=== PATIENT | female | born 1955 | race Caucasian/White ===

== ENCOUNTER → 2016-07-18 | Outpatient (CLI) | payer MEDICAID ==
--- NOTE | 2016-07-18 11:44 | ECHOS ---
DATE OF SERVICE: 07/18/2016 AGE: 61Y SEX: F HT: 64 WT: 165 lbs. Protocol Carlos A: X Others: Stress Echo Stage: IV Dur. of Exercise: 9:30 *Heart Rate Blood Pressure *Rest: 65 Rest: 121/82 * *Max. Achieved: 147 Maximum BP: 137/56 85% PMHR: 136 100% PMHR: 160 *METS: 10.9 INDICATIONS: Chest pain. MEDICATIONS: Lyrica, aspirin. Patient was exercised for a total period of 9 minutes and 30 seconds. Peak heart rate of 147 was achieved. Maximum blood pressure of 137/56 mmHg was noted. Resting EKG shows normal sinus rhythm with normal GA interval and QRS duration and normal ST-T waves. No ST segment depression suggestive of ischemia is noted. The patient did not complain of any chest pain during the test. The baseline echocardiographic images reveals a normal left ventricular chamber size with normal left ventricular systolic function. In the immediate postexercise period, normal increase in the wall thickness and contractility is noted. FINAL IMPRESSION: This stress echocardiographic study is negative for stress-induced ischemia. EKG portion of the stress is not suggestive of ischemia. Patient's exercise tolerance is normal.
--- NOTE | 2016-07-18 11:52 | ECHOF ---
Referral Reason:R07.2 percordial pain MEASUREMENTS -------- HEIGHT: 162.6 cm WEIGHT: 74.8 kg BP: 121/82 RVIDd: 2.8 cm (< 3.3) IVSd: 1.0 cm (0.6 - 1.1) LVIDd: 4.6 cm (3.9 - 5.3) LVPWd: 0.9 cm (0.6 - 1.1) IVSs: 1.6 cm LVIDs: 2.6 cm LVPWs: 1.3 cm LA Diam: 3.3 cm (2.7 - 3.8) LAESV Index (A-L): 12.64 ml/m Ao Diam: 2.9 cm (2.0 - 3.7) AV Cusp: 2.2 cm (1.5 - 2.6) MV E David: 0.87 m/s MV DecT: 252 ms MV A David: 0.73 m/s MV E/A Ratio: 1.19 FINDINGS -------- Sinus rhythm. This was a technically good study. The left ventricular size is normal. Left ventricular wall thickness is normal. Overall left ventricular systolic function is normal with, an EF between 60 - 65 %. The right ventricle is normal in size and function. Normal LA size by volume 22+/-6 ml/m2. The right atrium is normal in size. The aortic valve is trileaflet and appears structurally normal. Normal appearing mitral valve. The tricuspid valve appears structurally normal. Pulmonic valve appears structurally normal. The aortic root size is normal. Normal inferior vena cava with normal inspiratory collapse consistent with estimated right atrial pressure of 5 mmHg. There is no pericardial effusion. CONCLUSIONS -------- 1. Sinus rhythm. 2. Normal appearing mitral valve. 3. The tricuspid valve appears structurally normal. 4. Pulmonic valve appears structurally normal. 5. The aortic root size is normal. 6. Normal inferior vena cava with normal inspiratory collapse consistent with estimated right atrial pressure of 5 mmHg. 7. There is no pericardial effusion. 8. This was a technically good study. 9. The left ventricular size is normal. 10. Left ventricular wall thickness is normal. 11. Overall left ventricular systolic function is normal with, an EF between 60 - 65 %. 12. The right ventricle is normal in size and function. 13. Normal LA size by volume 22+/-6 ml/m2. 14. The right atrium is normal in size. 15. The aortic valve is trileaflet and appears structurally normal. LACTATION SPECIALIST: Shelly Reyna RDCS
== END | disposition home or self-care (01) ==
LOC: RADECHMAIN 08:17
PROVIDERS: ATTEND Internal Medicine Cardiovascular Disease
DX: R07.2 Precordial pain (principal)
CPT/HCPCS: 93017; 93306; 93350

== ENCOUNTER → 2016-09-16 | Outpatient (CLI) | payer MEDICAID ==
[2016-09-13 08:17] VITALS: BMI 28.3
[2016-09-16 14:19] VITALS: BP 120/77; PULSE 64; RESP 16; TEMP 97.5
--- NOTE | 2016-09-17 13:22 | P.PN ---
Subjective Principal diagnosis: This is follow-up visit for this patient with a history of severe and chronic left lower extremity pain and numbness and tingling sensation, patient had history of lumbar fusion surgery 2, she reported, that her pain is constant and occasionally associated with electric shock sensation in the left lower extremity, and she feels that occasionally she'll lose control of her left lower extremity, she is able to ambulate, she denies any fever or night sweats. She denies any change in the bowel movement or urination, she had left darian- laminectomy and microdiscectomy years ago, and she is currently on Lyrica 100 mg daily at bedtime, Patient denies any side effects of the medication, denies excessive drowsiness or sleepiness, denies suicidal ideation, and reports that the current pain medication is NOT helping control her pain Objective - Vital Signs Vital signs: Vital Signs Temp 97.5 F L 09/16/16 13:49 Pulse 64 09/16/16 13:49 Resp 16 09/16/16 13:49 BP 120/77 09/16/16 13:49 Pulse Ox 98 09/16/16 13:49 - Exam Physical Examinations : 1-Constitutiona : Cooperative , not in acute distress . 2-HEENT : nech ; supple , no Lymphadenopathy , normal thyroid size . eyes : no ptosis , no icterus, no photophobia . ENT : normal of hearing , normal oropharynx , no Thrush . 3- Respiratory : Chest clear to auscultations Bilaterally , no wheezing , no Rhonchi . 4- Cardiovascular : regular rate and rhythem , S1 , S2 , no S3 , no S4. 5- Gastrointestinal : abdomen soft no tenderness , bowel sounds positive all four quadrents , no organomegally . 6- Genitourinary : Defferred . 7- neurologic : Cranial nerve II to XII intact , no focal neurological deffecit . 8-psychatric : alert , oriented X 3 , appropriate affect , intact judgment and insight . 9-Lymphatic : no Lymphadenopathy . 10- musculoskeltal : , Lumber spine = normal moter stegnth lower extremities ,thigh and legs .5/5 deep tendon reflexes : normal Knee Jerk , normal ankle Jerk . Negative lumber facet Loading Test strait leg raising test negative bilaterally Fabere test negative bilaterally NO tenderness over the Sacroiliac joint on the Right , and Left side Assessment and Plan Plan: Assessment and plan= lumbar radiculopathy, patient had lumbar laminectomy and fusion surgery x2 She could benefit from caudal epidural steroid injections with lysis of epidural adhesions, which will be done under fluoroscopy guidance Procedure risk and benefits and alternatives discussed with the patient and she agreed with the preceding, she should continue her Lyrica 100 mg daily at bedtime, next visit we can increase the Lyrica does Time with Patient: Less than 30
== END | disposition home or self-care (01) ==
LOC: PNWHC3 12:46
PROVIDERS: ATTEND Specialist
DX: M54.16 Radiculopathy, lumbar region (principal); Z98.1 Arthrodesis status
CPT/HCPCS: 99211

== ENCOUNTER 2016-10-01 09:09 | Day surgery (SDC) | payer MEDICAID ==
[2016-10-01 09:44] VITALS: RESP 16; TEMP 93.8
[2016-10-01] MEDS ORDERED: LACTATED RINGERS 1,000 ML IV ONE (09:47)
[2016-10-01] MEDS ORDERED: LIDOCAINE 1% 20 ML VIAL (10MG/ML) FOR IV START INTRADERMA ONE (09:48)
[2016-10-01] MEDS ORDERED: DEXAMETHASONE SOD PHOS (MDV) 100 MG/10 ML VIAL ONE (10:00)
[2016-10-01] MEDS ORDERED: fentaNYL (PF) 50 MCG/ML 2 ML AMP ONE (10:00)
[2016-10-01] MEDS ORDERED: MIDAZOLAM 2 MG/2 ML VIAL ONE (10:00)
[2016-10-01] MEDS ORDERED: IOHEXOL 180 MG/ML 1 ML ML ONE (10:00)
[2016-10-01] MEDS ORDERED: IV FLUID CONTINUATION 1,000 ML IV ONE (10:27)
--- NOTE | 2016-10-01 10:31 | P.PCN ---
Date of Procedure: 10/01/16 Preoperative Diagnosis: Postoperative Diagnosis: Procedure(s) Performed: Implants: Surgeon: Kermit Foster Pathology: none sent Condition: stable Disposition: PACU Indications for Procedure: Operative Findings: Description of Procedure: PREOP DIAGNOSIS: Lumbar postlaminectomy syndrome POSTOP DIAGNOSIS: Lumbar postlaminectomy syndrome PROCEDURE: Caudal epidural steroid injection with epidurolysis and epidurogram under fluoroscopic guidance ANESTHESIA: Local with 1% lidocaine; conscious sedation EBL: Minimal. PROCEDURE INDICATION: The patient with post-laminectomy syndrome with low back pain and radiculopathy radiating down in both legs, here for a caudal epidural steroid injection with epidurolysis, #1 in series. Patient does not use any blood thinning medications. PROCEDURE DESCRIPTION: The patient was seen and identified in the preoperative area. Risks, benefits, complications, and alternatives were discussed with the patient including but not limited to bleeding, infection, nerve damage, incomplete pain relief, and allergic reactions to medications. The patient agreed to proceed with the procedure and signed the consent after all questions were answered. IV was started, and vital signs were stable. Patient was taken to the OR and time out was completed to verify proper patient , procedure, laterality of pain, and allergies. The patient was placed in the prone position on procedure table and a pillow was placed under the abdomen to reduce lumbar lordosis. The lumbosacral area was prepped and draped in the usual sterile fashion. Critical pause was taken. Vital signs were closely monitored during the procedure. Fluoroscopic camera was placed in the lateral view and the anterior-posterior plates of the sacrum were identified with infiltration of the area overlying the sacral hiatus with 1% lidocaine .A 16 gauge RK epidural needle was used to advance through the sacral hiatus into the caudal epidural space. Omnipaque 300 dye 2cc was injected and the position of the needle was verified to be in the midline. A Racz catheter was introduced into the epidural space and was advanced towards the L5-S1 interspace under direct fluoroscopic guidance. Multiple passes were made with the catheter for lysis of epidural adhesions. Decadron 20 mg with 3ml of preservative free Lidocaine 1% and 5 ml of preservative free normal saline (10 ml total) was injected slowly. Additional spread was seen to the bottom of L4 under fluoroscopy. The needle and the catheter were withdrawn intact. EPIDUROGRAM: Omnipaque 300 dye 2 ml was injected with spread of the dye into the caudal epidural space and with spread cutoff at L5 prior to epidurolysis. Post epidurolysis dye 2 ml was injected and spread was seen to L4. There was further spread of the solution together with the dye above the L5 level. COMPLICATIONS: None. DISPOSITION / PLANS: The patient was placed in a supine position and transferred to the recovery area in a stable condition for observation and was discharged from the recovery room after meeting discharge criteria. Home discharge instructions given to the patient by the staff. The patient was reexamined prior to discharge. The patient will schedule a repeat caudal KOREY with lysis of adhesions in 4-6 weeks.
--- NOTE | 2016-10-01 10:41 | FL ---
FLUOROSCOPY 8 seconds of fluoroscopy time were utilized during Pain Injection. 4 images document the procedure.
[2016-10-01 10:45] VITALS: BP 106/64; PULSE 61
== END 2016-10-01 10:57 | disposition home or self-care (01) ==
LOC: ORPAIN 09:09
PROVIDERS: ATTEND Anesthesiology
DX: M96.1 Postlaminectomy syndrome, not elsewhere classified (principal); M54.16 Radiculopathy, lumbar region
CPT/HCPCS: 62264; J2250; Q9965; J3010; J1100

== ENCOUNTER 2016-10-30 07:57 | Day surgery (SDC) | payer MEDICAID ==
[2016-10-14 11:08] VITALS: BMI 28.3
[2016-10-30 08:29] VITALS: RESP 16; TEMP 98.1
[2016-10-30] MEDS ORDERED: LACTATED RINGERS 1,000 ML IV ONE (08:54)
[2016-10-30] MEDS ORDERED: LIDOCAINE 1% 20 ML VIAL (10MG/ML) FOR IV START INTRADERMA ONE (08:54)
[2016-10-30] MEDS ORDERED: LACTATED RINGERS 1,000 ML IV SCH (09:30)
[2016-10-30] MEDS ORDERED: IV FLUID CONTINUATION 1,000 ML IV ONE (09:35)
--- NOTE | 2016-10-30 09:39 | FL ---
FLUOROSCOPY 5 seconds of fluoroscopy time were utilized during Pain Injection. 3 images document the procedure.
[2016-10-30 09:55] VITALS: PULSE 50
--- NOTE | 2016-10-30 10:06 | P.PCN ---
Date of Procedure: 10/30/16 Preoperative Diagnosis: Postoperative Diagnosis: Procedure(s) Performed: Implants: Surgeon: Kermit Foster Pathology: none sent Condition: stable Disposition: PACU Indications for Procedure: Operative Findings: Description of Procedure: PREOPERATIVE DIAGNOSIS: Lumbar post laminectomy syndrome. POSTOPERATIVE DIAGNOSIS: Lumbar post laminectomy syndrome. PROCEDURE: 1. Caudal epidural steroid injection under fluoroscopic guidance. 2. Caudal epidurogram. ANESTHESIA: Local with 1% lidocaine; IV sedation EBL: None. PROCEDURE INDICATION: This is a patient with postlaminectomy syndrome with uncontrolled pain who presents for caudal KOREY today. Several hours' relief from caudal KOREY + lysis #1; patient with severe pain after last procedure. Will proceed with caudal epidural steroid injection today. No use of blood thinners. PROCEDURE DESCRIPTION: The patient was seen and identified in the preoperative area. Risks, benefits, complications, and alternatives were discussed with the patient including but not limited to bleeding, infection, nerve damage, incomplete pain relief, and allergic reactions to medications. The patient agreed to proceed with the procedure and signed the consent. IV was started, and vital signs were stable. Patient was taken to the OR and time out was completed. The patient was placed in the prone position on procedure table and a pillow was placed under the abdomen to reduce lumbar lordosis. The lumbosacral area was prepped and draped in the usual sterile fashion. Vital signs were closely monitored during the procedure. Using lateral fluoroscopy the anterior-posterior plates of the sacrum were identified and the skin and deeper tissues corresponding into sacrococcygeal ligament were anesthetized using approximately 3 mL of 1% lidocaine. Then under fluoroscopy, a 3-1/2-inch 20-gauge Tuohy epidural needle/22-guage 3-1/2 inch spinal needle was guided through the sacrococcygeal ligament, and into the epidural space. After negative aspiration, a 1 mL of omnipaque-300 contrast dye was injected with excellent epidurogram. Again after negative aspiration for CSF , blood, and with no paresthesias, a solution containing Decadron 20mg, 2ml of 1 % preservative free lidocaine with 6 ml of preservative free normal saline ( total of 10 ml) solution was injected with washout of epidurogram. Needle was withdrawn intact. Skin was cleansed, and bandage was applied. COMPLICATIONS: None. COMMENTS: DISPOSITION / PLANS: The patient was placed in a supine position and transferred to the recovery area in a stable condition for observation and was discharged from the recovery room after meeting discharge criteria. Home discharge instructions given to the patient by the staff. The patient was reexamined prior to discharge. The patient will schedule a follow up in the clinic in 4-6 weeks to evaluate efficacy.
[2016-10-30 10:21] VITALS: BP 126/68
== END 2016-10-30 10:29 | disposition home or self-care (01) ==
LOC: ORPAIN 07:57
PROVIDERS: ATTEND Anesthesiology
DX: M96.1 Postlaminectomy syndrome, not elsewhere classified (principal); Z79.899 Other long term (current) drug therapy
CPT/HCPCS: 62323; J2250; J1100; Q9965; J3010; 62322; 99152

== ENCOUNTER → 2016-11-05 | Outpatient (CLI) | payer MEDICAID ==
--- NOTE | 2016-11-05 23:15 | MR ---
EXAMINATION TYPE: MR foot RT wo con DATE OF EXAM: 11/05/2016 COMPARISON: NONE HISTORY: Pain and swelling Standard multiplanar, multisequence MRI departmental protocol Multiplanar, multisequence images of the right foot were acquired. Diffusion weighted imaging was per formed. FINDINGS: The metatarsals are intact. I see no fracture. I see no focal bone destruction. There is mi ld spurring at the first MP joint. The tarsal bones appear intact. Plantar fascia appears normal. There is increased signal on the T2 images in the subcutaneous tissues of the forefoot and more at th e distal first second and third metatarsals. There is no evidence of a soft tissue mass. The medial and lateral flexor tendons of the foot appear intact. Achilles tendon is intact. IMPRESSION: There is subcutaneous edema in the forefoot there is nonspecific and could relate to cellulitis or un complicated soft tissue edema. No evidence of osteomyelitis. No fracture.
== END | disposition home or self-care (01) ==
LOC: RADMRIMAIN 16:31
PROVIDERS: ATTEND Orthopaedic Surgery
DX: R60.0 Localized edema (principal); M19.071 Primary osteoarthritis, right ankle and foot; M20.31 Hallux varus (acquired), right foot; G57.61 Lesion of plantar nerve, right lower limb

== ENCOUNTER → 2016-11-12 | Outpatient (CLI) | payer MEDICAID ==
[2016-11-12 13:25] LABS: CH 29.2; CHCM 32.5; HDW 2.41; HGB 13.1 gm/dL (11.4-16.0); MCH 29.7 pg (25.0-35.0); MCHC 32.8 g/dL (31.0-37.0); MCV 90.4 fL (80.0-100.0); Mean Platelet Volume 7.1; RBC 4.42 m/uL (3.80-5.40); RDW 14.2 % (11.5-15.5); WBC 9.8 k/uL (3.8-10.6)
[2016-11-12 13:52] LABS: C Reactive Protein 7.9 mg/L (<10.0)
[2016-11-12 13:53] LABS: Rheumatoid Factor, Qnt <9 IU/mL (<12)
[2016-11-12 17:52] LABS: Erythrocyte Sedimentation Rate 15 mm/hr (0-20)
[2016-11-12 19:11] LABS: ANA w/Reflex to Titer NEGATIVE (NEGATIVE)
[2016-11-13 12:42] LABS: HLA B27 NEGATIVE; HLA B27 Comment SEEBELOW
[2016-11-15 11:38] LABS: Lyme IgG/IgM 0.1 Index; Lyme IgG/IgM Interp NEGATIVE (NEGATIVE)
== END ==
LOC: LABWHC1 13:01
PROVIDERS: ATTEND Orthopaedic Surgery
DX: M19.071 Primary osteoarthritis, right ankle and foot (principal); M20.31 Hallux varus (acquired), right foot; G57.61 Lesion of plantar nerve, right lower limb; M06.9 Rheumatoid arthritis, unspecified
CPT/HCPCS: 36415; 84443; 85027; 85652; 86038; 86060; 86140; 86431; 86618; 86812

== ENCOUNTER → 2016-12-03 | Outpatient (CLI) | payer MEDICAID ==
--- NOTE | 2016-12-03 18:39 | CT ---
EXAMINATION TYPE: CT soft tissue neck w con DATE OF EXAM: 12/03/2016 5:42 PM COMPARISON: NONE HISTORY: Bilateral neck pain radiating to jaw. Family history of salivary gland cancer. CT DLP: 639.00 mGycm Automated exposure control for dose reduction was used. CONTRAST: CT scan of the neck is performed following with IV Contrast, patient injected with 100 mL of Omnipaqu e 300. Axial images are obtained, coronal and sagittal reformatted images are reviewed. FINDINGS: The parotid glands are symmetric. Submandibular salivary glands are symmetric. There is normal contra st opacification of carotid arteries and jugular veins. The thyroid gland is symmetric. There are a f ew anterior and posterior triangle cervical lymph nodes that measure less than 10 mm. I see no eviden ce of a pharyngeal mass. Epiglottis appears normal. Tonsils and adenoids appear normal. There is norm al aeration of the visualized paranasal sinuses. There are spondylotic changes in the cervical spine. There is no evidence of a tongue mass. Nasopharynx appears normal. IMPRESSION: Negative CT scan of the soft tissues of the neck. No evidence of salivary gland mass. Sp ondylotic changes noted in the cervical spine.
== END | disposition home or self-care (01) ==
LOC: RADCTMAIN 16:49
PROVIDERS: ATTEND Otolaryngology
DX: M47.812 Spondylosis without myelopathy or radiculopathy, cervical region (principal); H92.09 Otalgia, unspecified ear
CPT/HCPCS: 70491; Q9967

== ENCOUNTER → 2016-12-17 | Outpatient (CLI) | payer MEDICAID ==
--- NOTE | 2016-12-17 12:27 | P.PN ---
Progress Note - Text Patient returns for followup for chronic back pain with radiation to LLE. Patient recently underwent caudal KOREY x 2, which provided some relief for one day's interval apiece (one with lysis of adhesions, one without). Patient continues on Tylenol medication only for pain with some relief. Patient denies adverse drug effects from medications. Today, pt denies new-onset weakness, bowel/bladder incontinence, or any other signs or symptoms of cauda equina syndrome. There are no signs of acute intoxication, and no indications of medication diversion or overuse. In addition to above, 13-point review of systems is also negative for chest pain , shortness of breath, changes in vision, changes in hearing, new onset weakness , abdominal pain, diarrhea, extreme fatigue, malaise, fever, skin changes, homicidal or suicidal ideation, or bowel or bladder incontinence. Vital Signs: Reviewed in EMR Gen: WDWN, AAOx3, NAD HEENT: NCAT, EOMI, hearing grossly normal Pulm: resp unlabored Abd: soft, NT, ND Neck: supple, trachea midline ROM in flexion lumbar spine: reduced ROM in extension lumbar spine: reduced Lumbar paravertebral tenderness: + Facet loading: + bilateral SI joint tenderness: + L > R Rojas's test: + L > R Straight leg raise: + LLE Neuro: CN II-XII grossly intact, muscle strength lower extremities PRESERVED Imaging: Reviewed in EMR Assessment: 1. lumbar PLPS 2. lumbar spondylosis without myelopathy 3. lumbar radic Plan: 1. Explanation: Opioid and psychological risk scores were reviewed. Diagnoses , prognoses, and multiple treatment options including but not limited to physical therapy, interventional therapies, adjuvant medical therapies, narcotic medication therapies, and surgery were discussed with the patient and all questions were answered to the patient's satisfaction. 2. Opioid agreement: no opioids prescribed today 3. Counseling: The patient was counseled extensively on BODY MASS INDEX, EXERCISE. Specifically, the patient was instructed regarding the importance of smoking cessation, weight control, and exercise in the context of both chronic pain and overall health. 4. Procedures: bilateral lumbar MBB L3-S1 5. Consultations: None 6. Investigations: None 7. Medications: none prescribed 8. Disposition: f/u for procedure as scheduled PQRS measures: 1-Patient's medications are documented in the chart. 2-Tobacco use is negative 3-Patient has not had a pneumococcal vaccine. 4-Advanced care planning discussed, patient unable to give. 5-Opioid contract NOT signed with the patient. 6-Pain positive, follow-up visit or procedure scheduled 7-Patient's blood pressure measured and documented, and patient will follow up with the primary care due to hypertension. 8-Patient's weight was measured, and body mass index ABOVE the normal limits, and counseling was done. Patient instructed to follow up with PCP. 9-Patient WAS NOT identified as an unhealthy alcohol user.
== END | disposition home or self-care (01) ==
LOC: PNWHC3 11:22
PROVIDERS: ATTEND Anesthesiology
DX: M47.26 Other spondylosis with radiculopathy, lumbar region (principal); M96.1 Postlaminectomy syndrome, not elsewhere classified; Z79.899 Other long term (current) drug therapy
CPT/HCPCS: 99211

== ENCOUNTER 2017-01-08 08:48 | Day surgery (SDC) | payer MEDICAID ==
[2017-01-02 09:41] VITALS: BMI 29.2
[~2017-01-08 08:48] MED LIST: LACTATED RINGERS 1,000 ML IV SCH
[2017-01-08] MEDS ORDERED: LIDOCAINE 1% 20 ML VIAL (10MG/ML) FOR IV START INTRADERMA ONE (09:40)
[2017-01-08 09:46] VITALS: TEMP 97.7
[2017-01-08] MEDS ORDERED: IV FLUID CONTINUATION 1,000 ML IV ONE ×2 (10:15)
[2017-01-08 10:20] VITALS: RESP 16
[2017-01-08 10:44] VITALS: BP 117/57; PULSE 58
--- NOTE | 2017-01-08 10:48 | FL ---
Fluoroscopy HISTORY: Pain 11 seconds fluoroscopy time supplied to the referring clinician. 6 intraoperative C-arm images docum ent the procedure. See dictated report from anesthesia.
--- NOTE | 2017-01-08 10:48 | P.PCN ---
Date of Procedure: 01/08/17 Surgeon: Kermit Foster Pathology: none sent Condition: stable Disposition: PACU Description of Procedure: PREOPERATIVE DIAGNOSIS: L3-L4, L4-L5, and L5-S1 spondylosis without myelopathy and facet arthropathy. POSTOPERATIVE DIAGNOSIS: L3-L4, L4-L5, and L5-S1 spondylosis without myelopathy and facet arthropathy. PROCEDURE DESCRIPTION: Patient presents for L3-L4, L4-L5 and L5-S1 diagnostic medial branch blocks under fluoroscopic guidance. The procedure is performed using fluoroscopic guidance during needle placement to assure proper position and maximize safety. ANESTHESIA: Local with 1% lidocaine; conscious sedation with Versed only EBL: Minimal PROCEDURE INDICATION: Patient with lumbar facet arthropathy signs and symptoms, failed conservative therapy, here for diagnostic medial branch block #1 after minimal relief from caudal KOREY with SALENA and regular caudal KOREY. Pt does not take any blood thinning medications. PROCEDURE DESCRIPTION: The patient was seen and identified in the preoperative area. Risks, benefits, complications, and alternatives were discussed with the patient (including but not limited to incomplete pain relief, bleeding, infection, nerve damage, and allergies to medications), the patient agreed to proceed with the procedure and signed the consent after all questions were answered. Patient was taken to the OR and time out was completed to verify proper patient, position, laterality of pain, and allergies. Pt was placed in the prone position and a pillow was placed under the abdomen to reduce lumbar lordosis. The lumbosacral area was prepped and draped in the usual sterile fashion. Using oblique fluoroscopy, the eye of the "Evaristo dog" of right L4 vertebral body, which corresponds to the path of the medial branch originating from the level above, which is L3 in this case, was identified. Subsequently, a 22-gauge 3.5-inch spinal needle was inserted under fluoroscopic guidance toward the eye of the "Evaristo dog" of the right L4 vertebral body, corresponding to the junction of the superior articular process and the transverse process of the pedicle of the same level. After needle tip confirmation on lateral view and after negative aspiration for CSF and blood and without paresthesias, 1 mL of a 6 ml solution of 0.5% preservative-free bupivacaine and 40 mg Kenalog was injected. Subsequently the needle was withdrawn intact and the same procedure was repeated for the right L4, right L5, left L3, left L4, and left L5 medial branches which together with right L3 medial branch correspond to the sensory innervation of the bilateral L3-L4, L4-L5, and L5-S1 facet joints. Needle was withdrawn intact after each injection. At the end of the procedure, the skin was cleansed and bandages were applied. COMPLICATIONS: None. DISPOSITION/PLAN: The patient taken to the recovery area after the procedure in a stable condition for observation. Patient was reexamined prior to discharge and there were no issues. Patient was discharged home, accompanied by an adult, after meeting discharged criteria. Discharge instructions were give to the patient by the staff. Patient was specifically instructed not to drive today and to rest for the rest of the day. Patient will follow up for repeat MBB at next visit.
== END 2017-01-08 10:51 | disposition home or self-care (01) ==
LOC: ORPAIN 08:48
PROVIDERS: ATTEND Anesthesiology
DX: G89.29 Other chronic pain (principal); M46.96 Unspecified inflammatory spondylopathy, lumbar region; M47.816 Spondylosis without myelopathy or radiculopathy, lumbar region; M47.817 Spondylosis without myelopathy or radiculopathy, lumbosacral region
CPT/HCPCS: 64493; 64494; 64495; 99152; J2250; J3301

== ENCOUNTER → 2017-01-23 | Outpatient (CLI) | payer MEDICAID ==
[2017-01-23 08:57] LABS: Appearance,Urine Clear (Clear); Bilirubin,Urine Negative (Negative); Glucose,Urine (UA) Negative (Negative); Ketones,Urine Negative (Negative); Leukocyte Esterase,Urine Trace (Negative); Mucus,Urine Rare /hpf; Nitrite,Urine Negative (Negative); PH, Urine 5.5 (5.0-8.0); Particle Count 3256; Protein,Urine Negative (Negative); Specific Gravity,Urine 1.021 (1.001-1.035); Squamous Epithelial Cell,Urine <1 /hpf (0-4); UA Billing (MACRO vs. MICRO) MICRO; Urobilinogen,Urine <2.0 mg/dL (<2.0); WBC,Urine 1 /hpf (0-5)
[2017-01-23 09:03] LABS: Uric Acid 5.1 mg/dL (3.7-7.4)
[2017-01-23 17:21] LABS: Centromere Antibody Interp NEGATIVE (NEGATIVE); Cyclic Citrull Pep IgG Unit <0.5 U/mL; Cyclic Citrullinated Pep IgG NEGATIVE (NEGATIVE); RNP AB Interpretation NEGATIVE (NEGATIVE); Scleroderma SC-70 Ab Interp POSITIVE (NEGATIVE)
[2017-01-24 04:39] LABS: Aldolase 7.3 U/L (1.2-7.6)
[2017-01-24 05:22] LABS: Complement Total (CH50) 87 U/mL (42 - 95)
[2017-01-24 10:06] LABS: Free Kappa Lt Chain Qnt, Serum 1.44 mg/dL (0.33-1.94)
[2017-01-24 14:16] LABS: C-ANCA <1:20 Titer (<1:20); P-ANCA <1:20 Titer (<1:20)
[2017-01-27 09:27] LABS: Mis test requested (Blood) 14-3-3 eta Protein
== END | disposition home or self-care (01) ==
LOC: LABWHC1 08:10
PROVIDERS: ATTEND Internal Medicine Rheumatology
DX: M13.0 Polyarthritis, unspecified (principal)
CPT/HCPCS: 36415; 81001; 82085; 82164; 82306; 82550; 83520; 83883; 84165; 84550; 85613; 85730; 85732; 86038; 86147; 86160; 86162; 86200; 86225; 86235; 86255; 86334; 86803; 87340

== ENCOUNTER → 2017-04-16 | Outpatient (CLI) | payer MEDICAID ==
[2017-04-16 12:22] VITALS: BP 146/85; PULSE 85; RESP 16
--- NOTE | 2017-04-16 12:29 | P.PN ---
Subjective Progress Note Date: 04/16/17 This is follow-up visit for this patient with a history of severe and chronic low back pain secondary to lumbar degenerative disc disease, lumbar facet arthropathy, we did interventional pain management injection,,diagnostic medial branch block bilaterally , it was successful then in 03/06/2017 we have done radiofrequency ablation of the left-sided medial branch L3 to S1 , and her low back pain improved significantly , currently she is complaining of severe pain localized in the anterior lateral aspect of the left lower extremity below the knee , the intensity of the pain increased with any activity Patient denies any motor or sensory deficit, denies change in bowel movement or urination, patient denies any fever or night sweats Objective - Exam Physical Examinations : 1-Constitutiona : Cooperative , not in acute distress . 2-HEENT : nech ; supple , no Lymphadenopathy , normal thyroid size . eyes : no ptosis , no icterus, no photophobia . ENT : normal of hearing , normal oropharynx , no Thrush . 3- Respiratory : Chest clear to auscultations Bilaterally , no wheezing , no Rhonchi . 4- Cardiovascular : regular rate and rhythem , S1 , S2 , no S3 , no S4. 5- Gastrointestinal : abdomen soft no tenderness , bowel sounds positive all four quadrents , no organomegally . 6- Genitourinary : Defferred . 7- neurologic : Cranial nerve II to XII intact , no focal neurological deffecit . 8-psychatric : alert , oriented X 3 , appropriate affect , intact judgment and insight . 9-Lymphatic : no Lymphadenopathy . 10- musculoskeltal : , Lumber spine = normal moter stegnth lower extremities ,thigh and legs .5/5 deep tendon reflexes : normal Knee Jerk , normal ankle Jerk . lumber facet Loading Test negative bilateral strait leg raising test negative bilateral Fabere test negative bilaterally normal sensations both lower extremities Assessment and Plan Assessment: Assessment and plan= chronic low back pain secondary to lumbar degenerative disc disease , lumbar spondylosis with lumbar facet arthropathy , failed back surgery syndrome and lumbar area Interventional pain management= Refferal = Follow-up= , Plan: Assessment and plan= chronic low back pain secondary to lumbar radiculopathy , lumbar spondylosis with lumbar facet arthropathy , history of lumbar laminectomy surgery Interventional pain management= patient could benefit from caudal epidural steroid injection with lysis of epidural adhesions under fluoroscopy guidance procedure risks and benefits , and alternative discussed with the patient she agreed with proceeding , Time with Patient: Less than 30
== END | disposition home or self-care (01) ==
LOC: PNWHC3 11:46
PROVIDERS: ATTEND Specialist
DX: G89.29 Other chronic pain (principal); M54.5 Low back pain; M51.16 Intervertebral disc disorders with radiculopathy, lumbar region; M47.26 Other spondylosis with radiculopathy, lumbar region; M46.86 Other specified inflammatory spondylopathies, lumbar region; M96.1 Postlaminectomy syndrome, not elsewhere classified
CPT/HCPCS: 99211

== ENCOUNTER 2017-04-21 07:31 | Day surgery (SDC) | payer MEDICAID ==
[2017-04-18 08:42] VITALS: BMI 28.3
[2017-04-21 07:50] VITALS: TEMP 98
[2017-04-21] MEDS ORDERED: LIDOCAINE 1% 20 ML VIAL (10MG/ML) FOR IV START INTRADERMA ONE (08:01)
--- NOTE | 2017-04-21 09:13 | P.PCN ---
Date of Procedure: 04/21/17 Procedure(s) Performed: PREOP DIAGNOSIS: 1- Lumbar postlaminectomy syndrome. 2-lumbar spondylosis with facet arthropathy POSTOP DIAGNOSIS:1- Lumbar postlaminectomy syndrome. 2-lumbar spondylosis with facet arthropathy PROCEDURE: Caudal epidural steroid injection with epidurolysis and epidurogram under fluoroscopic guidance. ANESTHESIA: Local with 1% lidocaine 3 ml ; moderate IV sedation with Versed 3 mg and fentanyl 100 g EBL: Minimal. PROCEDURE INDICATION: The patient with post-laminectomy syndrome with low back pain and radiculopathy radiating down in both legs, here for a caudal epidural steroid injection with epidurolysis. PROCEDURE DESCRIPTION: The patient was seen and identified in the preoperative area. Risks, benefits, complications, and alternatives were discussed with the patient. The patient agreed to proceed with the procedure and signed the consent. IV was started, and vital signs were stable. Patient was taken to the OR and time out was completed. The patient was placed in the prone position on procedure table and a pillow was placed under the abdomen to reduce lumbar lordosis. The lumbosacral area was prepped and draped in the usual sterile fashion. Vital signs were closely monitored during the procedure. lateral view and the anterior-posterior plates of the sacrum were identified with infiltration of the area overlying the sacral hiatus with 1% lidocaine .A 17 gauge RK epidural needle was used to advance through the sacral hiatus into the caudal epidural space. Omnipaque 180 dye. 2cc was injected and the position of the needle was verified to be in the midline. A Racz catheter was introduced into the epidural space and was advanced towards the L5-S1 interspace under direct fluoroscopic guidance. Multiple passes were made with the catheter for lysis of epidural adhesions. Kenalog 80 mg with 3ml of preservative free Lidocaine 1% and 5 ml of preservative free normal saline was injected slowly. Additional spread was seen to L4 under fluoroscopy. The needle and the catheter were withdrawn intact. EPIDUROGRAM: Omnipaque 180 mg dye 2 ml was injected with spread of the dye into the caudal epidural space and with spread cutoff at L5 prior to epidurolysis. Post epidurolysis dye 2 ml was injected and spread was seen to L3- 4.There was further spread of the solution together with the dye above the L3 COMPLICATIONS: None. DISPOSITION / PLANS: The patient was placed in a supine position and transferred to the recovery area in a stable condition for observation and was discharged from the recovery room after meeting discharge criteria. Home discharge instructions given to the patient by the staff. The patient was reexamined prior to discharge. The patient will schedule a follow up in the clinic in 2-4 weeks.
[2017-04-21] MEDS ORDERED: IV FLUID CONTINUATION 1,000 ML IV ONE (09:17)
[2017-04-21 09:20] VITALS: RESP 16
--- NOTE | 2017-04-21 09:22 | FL ---
EXAMINATION TYPE: FL guided pain mgmt statistic DATE OF EXAM: 04/21/2017 HISTORY: Flouroscopy time 4 seconds of fluoroscopy provided. IMPRESSION: 1. Fluoroscopy time.
[2017-04-21 09:43] VITALS: BP 120/73; PULSE 59
== END 2017-04-21 09:57 | disposition home or self-care (01) ==
LOC: ORPAIN 07:31
PROVIDERS: ATTEND Specialist
DX: M96.1 Postlaminectomy syndrome, not elsewhere classified (principal); M47.816 Spondylosis without myelopathy or radiculopathy, lumbar region
CPT/HCPCS: 62264; J2250; J3301; Q9965; J3010; C1894; 99152

== ENCOUNTER 2017-05-14 07:26 | Day surgery (SDC) | payer MEDICAID ==
[2017-05-06 14:54] VITALS: BMI 28.3
[2017-05-14 07:45] VITALS: TEMP 97.9
[2017-05-14] MEDS: LACTATED RINGERS 1,000 ML IV SCH ×2 (07:48→08:32)
[2017-05-14] MEDS ORDERED: LIDOCAINE 1% 20 ML VIAL (10MG/ML) FOR IV START INTRADERMA ONE (07:49)
--- NOTE | 2017-05-14 09:07 | P.PCN ---
Date of Procedure: 05/14/17 Procedure(s) Performed: PREOP DIAGNOSIS: 1- Lumbar postlaminectomy syndrome POSTOP DIAGNOSIS:1- Lumbar postlaminectomy syndrome PROCEDURE: Caudal epidural steroid injection with epidurolysis and epidurogram under fluoroscopic guidance ANESTHESIA: Local with 1% lidocaine 3 ml ; IV sedation with Versed 3 mg and fentanyl 100 g EBL: Minimal. PROCEDURE INDICATION: The patient with post-laminectomy syndrome with low back pain and radiculopathy radiating down in both legs, here for a caudal epidural steroid injection with epidurolysis. PROCEDURE DESCRIPTION: The patient was seen and identified in the preoperative area. Risks, benefits, complications, and alternatives were discussed with the patient. The patient agreed to proceed with the procedure and signed the consent. IV was started, and vital signs were stable. Patient was taken to the OR and time out was completed. The patient was placed in the prone position on procedure table and a pillow was placed under the abdomen to reduce lumbar lordosis. The lumbosacral area was prepped and draped in the usual sterile fashion. Vital signs were closely monitored during the procedure. lateral view and the anterior-posterior plates of the sacrum were identified with infiltration of the area overlying the sacral hiatus with 1% lidocaine .A 17 gauge RK epidural needle was used to advance through the sacral hiatus into the caudal epidural space. Omnipaque 180 dye. 2cc was injected and the position of the needle was verified to be in the midline. A Racz catheter was introduced into the epidural space and was advanced towards the L5-S1 interspace under direct fluoroscopic guidance. Multiple passes were made with the catheter for lysis of epidural adhesions. Kenalog 80 mg with 3ml of preservative free Lidocaine 1% and 5 ml of preservative free normal saline was injected slowly. Additional spread was seen to L4 under fluoroscopy. The needle and the catheter were withdrawn intact. EPIDUROGRAM: Omnipaque 180 mg dye 2 ml was injected with spread of the dye into the caudal epidural space and with spread cutoff at L5 prior to epidurolysis. Post epidurolysis dye 2 ml was injected and spread was seen to L3- 4.There was further spread of the solution together with the dye above the L3 COMPLICATIONS: None. DISPOSITION / PLANS: The patient was placed in a supine position and transferred to the recovery area in a stable condition for observation and was discharged from the recovery room after meeting discharge criteria. Home discharge instructions given to the patient by the staff. The patient was reexamined prior to discharge. The patient will schedule a follow up in the clinic in 2-4 weeks.
[2017-05-14] MEDS ORDERED: IV FLUID CONTINUATION 1,000 ML IV ONE ×2 (09:11)
[2017-05-14 09:14] VITALS: RESP 16
--- NOTE | 2017-05-14 09:18 | FL ---
EXAMINATION TYPE: FL guided pain mgmt statistic DATE OF EXAM: 05/14/2017 HISTORY: Flouroscopy time 8 seconds of fluoroscopy provided. IMPRESSION: 1. Fluoroscopy time.
[2017-05-14 09:50] VITALS: BP 115/70; PULSE 63
== END 2017-05-14 09:55 | disposition home or self-care (01) ==
LOC: ORPAIN 07:26
PROVIDERS: ATTEND Specialist
DX: M96.1 Postlaminectomy syndrome, not elsewhere classified (principal)
CPT/HCPCS: 62264; J2250; J3301; Q9965; J3010; C1894; 99152

== ENCOUNTER → 2017-06-09 | Outpatient (CLI) | payer MEDICAID ==
[2017-06-09 11:55] VITALS: BP 133/71; PULSE 72; RESP 16
--- NOTE | 2017-06-09 12:25 | P.PN ---
Progress Note - Text Progress Note Date: 06/09/17 Patient returns for followup for chronic back pain with radiation to LLE. Patient recently underwent caudal KOREY x 2, which has provided good relief in the meantime. Patient continues on Tylenol medication only for pain with some relief. Patient denies adverse drug effects from medications. Today, pt denies new-onset weakness, bowel/bladder incontinence, or any other signs or symptoms of cauda equina syndrome. There are no signs of acute intoxication, and no indications of medication diversion or overuse. In addition to above, 13-point review of systems is also negative for chest pain , shortness of breath, changes in vision, changes in hearing, new onset weakness , abdominal pain, diarrhea, extreme fatigue, malaise, fever, skin changes, homicidal or suicidal ideation, or bowel or bladder incontinence. Vital Signs: Reviewed in EMR Gen: WDWN, AAOx3, NAD HEENT: NCAT, EOMI, hearing grossly normal Pulm: resp unlabored Abd: soft, NT, ND Neck: supple, trachea midline ROM in flexion lumbar spine: reduced ROM in extension lumbar spine: reduced Lumbar paravertebral tenderness: + Facet loading: + bilateral SI joint tenderness: + L > R Rojas's test: + L > R Straight leg raise: + LLE, neg RLE Neuro: CN II-XII grossly intact, muscle strength lower extremities PRESERVED Imaging: Reviewed in EMR Assessment: 1. lumbar PLPS 2. lumbar spondylosis without myelopathy 3. lumbar radic Plan: 1. Explanation: Opioid and psychological risk scores were reviewed. Diagnoses , prognoses, and multiple treatment options including but not limited to physical therapy, interventional therapies, adjuvant medical therapies, narcotic medication therapies, and surgery were discussed with the patient and all questions were answered to the patient's satisfaction. 2. Opioid agreement: no opioids prescribed today 3. Counseling: The patient was counseled extensively on BODY MASS INDEX, EXERCISE. Specifically, the patient was instructed regarding the importance of smoking cessation, weight control, and exercise in the context of both chronic pain and overall health. 4. Procedures: caudal KOREY with lysis in 3-4 weeks 5. Consultations: None 6. Investigations: None 7. Medications: none prescribed 8. Disposition: f/u for procedure as scheduled PQRS measures: 1-Patient's medications are documented in the chart. 2-Tobacco use is negative 3-Patient has not had a pneumococcal vaccine. 4-Advanced care planning discussed, patient unable to give. 5-Opioid contract NOT signed with the patient. 6-Pain positive, follow-up visit or procedure scheduled 7-Patient's blood pressure measured and documented, and patient will follow up with the primary care due to hypertension. 8-Patient's weight was measured, and body mass index ABOVE the normal limits, and counseling was done. Patient instructed to follow up with PCP. 9-Patient WAS NOT identified as an unhealthy alcohol user.
== END | disposition home or self-care (01) ==
LOC: PNWHC3 11:40
PROVIDERS: ATTEND Anesthesiology
DX: M47.26 Other spondylosis with radiculopathy, lumbar region (principal); G97.1 Other reaction to spinal and lumbar puncture; Z79.899 Other long term (current) drug therapy
CPT/HCPCS: 99211

== ENCOUNTER 2017-07-14 09:17 | Day surgery (SDC) | payer MEDICAID ==
[2017-07-07 11:13] VITALS: BMI 28.3
[2017-07-14] MEDS ORDERED: LIDOCAINE 1% 20 ML VIAL (10MG/ML) FOR IV START INTRADERMA ONE (10:12)
[2017-07-14 10:20] VITALS: TEMP 97.7
[2017-07-14] MEDS ORDERED: LACTATED RINGERS 1,000 ML IV ONE (10:25)
--- NOTE | 2017-07-14 11:23 | P.PCN ---
Date of Procedure: 07/14/17 Preoperative Diagnosis: Post Laminectomy Syndrome Postoperative Diagnosis: Post Laminectomy Syndrome Condition: stable Disposition: PACU Description of Procedure: PREOP DIAGNOSIS: 1- Lumbar postlaminectomy syndrome POSTOP DIAGNOSIS:1- Lumbar postlaminectomy syndrome PROCEDURE: Caudal epidural steroid injection with epidurolysis and epidurogram under fluoroscopic guidance ANESTHESIA: Local with 1% lidocaine 3 ml ; IV sedation with Versed 2 mg and fentanyl 100 g EBL: Minimal. PROCEDURE INDICATION: The patient with post-laminectomy syndrome with low back pain and radiculopathy radiating down in both legs, here for a caudal epidural steroid injection with epidurolysis. PROCEDURE DESCRIPTION: The patient was seen and identified in the preoperative area. Risks, benefits, complications, and alternatives were discussed with the patient. The patient agreed to proceed with the procedure and signed the consent. IV was started, and vital signs were stable. Patient was taken to the OR and time out was completed. The patient was placed in the prone position on procedure table and a pillow was placed under the abdomen to reduce lumbar lordosis. The lumbosacral area was prepped and draped in the usual sterile fashion. Vital signs were closely monitored during the procedure. lateral view and the anterior-posterior plates of the sacrum were identified with infiltration of the area overlying the sacral hiatus with 1% lidocaine .A 17 gauge RK epidural needle was used to advance through the sacral hiatus into the caudal epidural space. Omnipaque 180 dye. 2cc was injected and the position of the needle was verified to be in the midline. A Racz catheter was introduced into the epidural space and was advanced towards the L5-S1 interspace under direct fluoroscopic guidance. Multiple passes were made with the catheter for lysis of epidural adhesions. Kenalog 40 mg with 3ml of preservative free Lidocaine 1% and 5 ml of preservative free normal saline was injected slowly. Additional spread was seen to L4 under fluoroscopy. The needle and the catheter were withdrawn intact. EPIDUROGRAM: Omnipaque 180 mg dye 2 ml was injected with spread of the dye into the caudal epidural space and with spread cutoff at L5 prior to epidurolysis. Post epidurolysis dye 2 ml was injected and spread was seen to L3- 4.There was further spread of the solution together with the dye above the L3 COMPLICATIONS: None. DISPOSITION / PLANS: The patient was placed in a supine position and transferred to the recovery area in a stable condition for observation and was discharged from the recovery room after meeting discharge criteria. Home discharge instructions given to the patient by the staff. The patient was reexamined prior to discharge. The patient will schedule a follow up in the clinic in 2-4 weeks.
[2017-07-14] MEDS ORDERED: IV FLUID CONTINUATION 1,000 ML IV ONE (11:46)
[2017-07-14 11:50] VITALS: RESP 18
--- NOTE | 2017-07-14 12:04 | FL ---
EXAMINATION TYPE: FL guided pain mgmt statistic DATE OF EXAM: 07/14/2017 HISTORY: Flouroscopy time 65 seconds of fluoroscopy provided. IMPRESSION: 1. Fluoroscopy time.
[2017-07-14 12:18] VITALS: BP 115/76; PULSE 78
== END 2017-07-14 12:26 | disposition home or self-care (01) ==
LOC: ORPAIN 09:17
PROVIDERS: ATTEND Anesthesiology
DX: M96.1 Postlaminectomy syndrome, not elsewhere classified (principal); Z98.1 Arthrodesis status
CPT/HCPCS: 62264; J2250; J3301; J3010; Q9966; C1894; 99152

== ENCOUNTER → 2017-08-25 | Outpatient (CLI) | payer MEDICAID ==
[2017-08-25 12:05] VITALS: BP 158/81; PULSE 60; RESP 16; TEMP 97
--- NOTE | 2017-08-25 12:15 | P.PAINPG ---
Subjective Progress Note Date: 08/25/17 Principal diagnosis: Left lumbar radicular pain This is a very pleasant 62-year-old woman with a history of back pain and left leg numbness as well as pain. She is undergone caudal epidural steroid injections. She reports that she did receive some benefit from this and that with each of these injections she tends to see improvement. She now reports she has significant burning in the outside of her right calf. This is an worse since her last procedure. She is here requesting management of the symptoms. She is previously tried Lyrica as well as gabapentin and did not receive any significant benefit from these. She denies bowel or bladder dysfunction. She denies any other neurologic problems. The numbness in her foot has resolved. Objective - Vital Signs Vital signs: Vital Signs Temp 97 F L 08/25/17 12:01 Pulse 60 08/25/17 12:01 Resp 16 08/25/17 12:01 BP 158/81 08/25/17 12:01 Pulse Ox 100 08/25/17 12:01 Intake & Output 08/24/17 08/25/17 08/25/17 18:59 06:59 18:59 Weight 74.843 kg - Exam Gen: WDWN, AAOx3, NAD HEENT: NCAT, EOMI, hearing grossly normal Pulm: resp unlabored Straight leg raise is weakly positive on the left. There is good strength in lower extremities bilaterally. There are no sensory deficits in the lower extremities bilaterally. Reflexes are slightly depressed on the left side at the patella as compared to the right side. Assessment and Plan (1) Lumbar back pain with radiculopathy affecting left lower extremity Current Visit: Yes Status: Acute Code(s): M54.17 - RADICULOPATHY, LUMBOSACRAL REGION SNOMED Code(s): 657490158 Plan: * We will schedule the patient for a left lumbar transforaminal epidural steroid injection to be performed at the L4 5 level. PQRS Measure Charge Sheet Measure #130: Documentation of Current Meds in Medical Chart: Patient's medications documented in chart Measure #226: Tobacco Use: Screen & Cessation Intervention: Pt screened for tobacco use AND intervention given Measure #111: Pneumonia Vaccination: Pneumococcal vaccine NOT administered or previously given Measure #47: Advance Care Plan: Advance care planning discussed & documented, pt chose/unable to give Measure #412: Opioid Treatment Agreement: No documentation of signed opioid treatment agreement Measure #408: Opioid Therapy Follow-up Evaluation: Patient had NO f/u eval minimum every 3 months during opioid therapy Measure #317: Preventitive Care & Scrn High Bld Press & F/U: Pre-hypertensive or hypertensive BP documented, pt will f/u with PCP Measure #128: Body Mass Index (BMI) Screening & Follow-up: BMI documented ABOVE normal parameters - f/u documented Measure #131: Pain Assessment & Follow-up: Pain positive & plan documented Measure #431: Unhealthy Alcohol Use Preventative Care & Scrn: Patient not identified as an unhealthy alcohol user PQRS Narrative: Smoking Status Never smoker Do You Want the Pneumonia No Vaccine AT THIS TIME? Blood Pressure 158/81 Pain Intensity [Left Lower 3 Calf] Scale Used Numeric (1 - 10) Hx Alcohol Use (MH) No Home Medications: Ambulatory Orders Multivitamin [Multivitamins Adult Gummies] 1 each PO DAILY 01/02/17 Acetaminophen [Tylenol Arthritis] 650 mg PO HS PRN 07/07/17 Controlled Substance Measures - Controlled Substance Measures Is patient prescribed a controlled substance at discharge?: No If prescribed controlled substance>3 days was MAPS reviewed?: No When asked, does pt state using other controlled substances?: No Vital Signs - Temperature Temperature: 97 F - Respirations Respiratory Rate: 16 O2 Sat by Pulse Oximetry: 100
== END | disposition home or self-care (01) ==
LOC: PNWHC3 11:44
PROVIDERS: ATTEND Pain Medicine Pain Medicine
DX: M54.17 Radiculopathy, lumbosacral region (principal); Z79.899 Other long term (current) drug therapy
CPT/HCPCS: 99211

== ENCOUNTER 2017-09-17 08:42 | Day surgery (SDC) | payer MEDICAID ==
[2017-09-10 15:55] VITALS: BMI 28.3
[2017-09-17 09:41] VITALS: RESP 16; TEMP 97.5
[2017-09-17] MEDS ORDERED: LIDOCAINE 1% 20 ML VIAL (10MG/ML) FOR IV START INTRADERMA ONE (09:45)
[2017-09-17] MEDS ORDERED: IV FLUID CONTINUATION 1,000 ML IV ONE (11:20)
--- NOTE | 2017-09-17 11:38 | P.PCN ---
Date of Procedure: 09/17/17 Surgeon: Kermit Foster Pathology: none sent Condition: stable Disposition: PACU Description of Procedure: PREOPERATIVE DIAGNOSIS: Lumbar radiculopathy POSTOPERATIVE DIAGNOSIS: Lumbar radiculopathy PROCEDURE: 1. Transforaminal epidural steroid injection under fluoroscopic guidance at left L4-L5 level. 2. Lumbar epidurogram. ANESTHESIA: Local with 1% lidocaine; IV sedation with Versed and fentanyl EBL: Minimal PROCEDURE INDICATION: The patient with low back pain and radiculopathy symptoms secondary to PLPS unresponsive to conservative treatment. Patient has pain only on the left side, so will proceed with TFESI today. No use of blood thinners. PROCEDURE DESCRIPTION / TECHNIQUE: The patient was seen and identified in the preoperative area. Risks, benefits, complications, and alternatives were discussed with the patient (including but not limited to incomplete pain relief, bleeding, infection, nerve damage, and allergies to medications), the patient agreed to proceed with the procedure and signed the consent after all questions were answered. Patient was taken to the OR and time out was completed to verify proper patient, position, laterality of pain, and allergies. Pt was placed in the prone position and a pillow was placed under the abdomen to reduce lumbar lordosis. The lumbosacral area was prepped and draped in the usual sterile fashion. Vital signs were closely monitored during the procedure. Conscious sedation was used during the procedure to decrease patients anxiety. Using oblique fluoroscopy, the chin of the Evaristo dog at left L4-L5 level was identified, and the skin and deeper tissues just below was localized with 1 % lidocaine. Subsequently, a 22-gauge 3.5-inch spinal needle was advanced under a tunneled view fluoroscopic guidance just underneath the chin of the Evaristo dog at the left L4 level. Under lateral fluoroscopy, the needle was then advanced to the posterior border of the L4-L5 interforaminal space. After negative aspiration of CSF and blood and with no paresthesias, 1 mL of Isovue- 200 contrast dye was injected excellent epidurogram and outlining of the L4 nerve roots. Subsequently, 3 mL of total 6 ml block solution containing 10 mg of Decadron and 2 mL of PF lidocaine 1% was injected. At the end of the procedure, needles were removed intact, skin was cleansed, and bandages were applied. COMPLICATIONS: None COMMENTS: None. DISPOSITION / PLANS: The patient was placed in a supine position and transferred to the recovery area in a stable condition for observation. There was no evidence of lower extremity motor or sensory deficit after the procedure. Patient was discharged from the recovery room after meeting discharge criteria. Home discharge instructions were given to the patient by the staff. The patient was reexamined prior to discharge and there were no issues. The patient will schedule a follow up in clinic in 3-4 weeks to discuss efficacy.
[2017-09-17 12:01] VITALS: BP 141/63; PULSE 58
--- NOTE | 2017-09-17 12:04 | FL ---
EXAMINATION TYPE: FL guided pain mgmt statistic DATE OF EXAM: 09/17/2017 COMPARISON: NONE HISTORY: Left transforaminal injection. Lumbar spine pain. TECHNIQUE: Fluoroscopy. FINDINGS/IMPRESSION: Fluoroscopic guidance was provided during procedure performed by Dr. Foster. A total of 18 seconds of fluoroscopic time was utilized during the procedure and 4 spot images was acqu ired demonstrating localization of the lumbar spine.
== END 2017-09-17 12:05 | disposition home or self-care (01) ==
LOC: ORPAIN 08:42
PROVIDERS: ATTEND Anesthesiology
DX: M54.17 Radiculopathy, lumbosacral region (principal); M96.1 Postlaminectomy syndrome, not elsewhere classified
CPT/HCPCS: 64483; J2250; J1100; J3010; Q9966

== ENCOUNTER → 2017-10-15 | Outpatient (CLI) | payer MEDICAID ==
[2017-10-15 12:08] VITALS: BP 141/73; PULSE 55; RESP 16
--- NOTE | 2017-10-15 12:40 | P.PAINPG ---
Subjective Progress Note Date: 10/15/17 This is 62-year-old female with a chronic history of severe low back pain with radiation to the left lower extremity, mostly. Back surgery syndrome lumbar area and lumbar radiculopathy, previously with done: Epidural steroid injection with lysis of epidural adhesions , she had the partial short-term benefit from it, a few weeks ago we did the left-sided transforaminal epidural steroid injection at the L4 5 level, she reported that she had the best results after the transforaminal, pain improved significantly and currently she is complaining of left lower extremity pain and aching and burning sensation, she denies any fever or night sweats she denies any change in the bowel movement or urination, she tried multiple medications in the past she had either no benefit or side effects from it, she had side effects from Neurontin ,Lyrica ,[place], she has done physical therapy without any benefit. Objective - Vital Signs Vital signs: Vital Signs Temp Pulse 55 L 10/15/17 12:04 Resp 16 10/15/17 12:04 BP 141/73 10/15/17 12:04 Pulse Ox Intake & Output 10/14/17 10/15/17 10/15/17 18:59 06:59 18:59 Weight 74.843 kg - Exam Physical Examinations : 1-Constitutiona : Cooperative , not in acute distress . 2-- musculoskeltal : , Lumber spine = normal moter stegnth lower extremities ,thigh and legs .5/5 deep tendon reflexes : normal Knee Jerk , normal ankle Jerk . lumber facet Loading Test positive strait leg raising test positive at 60 degree Right , positve at 60 degree Left Fabere test positive Right and positive Left Assessment and Plan Assessment: Assessment and plan= 1-postlaminectomy pain syndrome 2-lumbar radiculopathy. Patient had partial short-term benefit from, and epidural steroid injections, she had more than 50% decrease in her pain after left-sided transforaminal epidural steroid injection at L4 5 levels, she will be good candidate to have a repeat left-sided transforaminal epidural steroid injection at L4-L5 level PQRS Measure Charge Sheet Measure #130: Documentation of Current Meds in Medical Chart: Patient's medications documented in chart Measure #226: Tobacco Use: Screen & Cessation Intervention: Pt not a tobacco user Measure #111: Pneumonia Vaccination: Pneumococcal vaccine NOT administered or previously given Measure #47: Advance Care Plan: Advance care planning discussed & documented, plan or surrogate given Measure #412: Opioid Treatment Agreement: No documentation of signed opioid treatment agreement Measure #408: Opioid Therapy Follow-up Evaluation: Patient had NO f/u eval minimum every 3 months during opioid therapy Measure #317: Preventitive Care & Scrn High Bld Press & F/U: Pre-hypertensive or hypertensive BP documented, pt will f/u with PCP Measure #128: Body Mass Index (BMI) Screening & Follow-up: BMI documented ABOVE normal parameters - f/u documented Measure #131: Pain Assessment & Follow-up: Pain positive & plan documented, Follow-up scheduled Measure #431: Unhealthy Alcohol Use Preventative Care & Scrn: Patient not identified as an unhealthy alcohol user PQRS Narrative: Smoking Status Never smoker Do You Want the Pneumonia No Vaccine AT THIS TIME? Blood Pressure 141/73 Pain Intensity [Left Lower 2 Lateral Leg] Scale Used Numeric (1 - 10) Hx Alcohol Use (MH) No Home Medications: Ambulatory Orders Multivitamin [Multivitamins Adult Gummies] 1 each PO DAILY 01/02/17 Acetaminophen [Tylenol Arthritis] 650 mg PO HS PRN 07/07/17 Controlled Substance Measures - Controlled Substance Measures Is patient prescribed a controlled substance at discharge?: No When asked, does pt state using other controlled substances?: No If prescribed controlled substance>3 days was MAPS reviewed?: No If Rx opioid, was Start Talking consent form obtained?: No If opioid is for acute pain is fill amount 7 days or less?: No Was information provided regarding opioid addiction?: No
== END | disposition home or self-care (01) ==
LOC: PNWHC3 11:45
PROVIDERS: ATTEND Specialist
DX: M96.1 Postlaminectomy syndrome, not elsewhere classified (principal); M54.16 Radiculopathy, lumbar region; Z79.899 Other long term (current) drug therapy
CPT/HCPCS: 99211

== ENCOUNTER 2017-11-10 06:55 | Day surgery (SDC) | payer MEDICAID ==
[2017-11-03 16:03] VITALS: BMI 28.3
[2017-11-10] MEDS ORDERED: LACTATED RINGERS 1,000 ML IV SCH (07:00)
[2017-11-10 07:43] VITALS: TEMP 98
[2017-11-10] MEDS ORDERED: LIDOCAINE 1% 20 ML VIAL (10MG/ML) FOR IV START INTRADERMA ONE (07:51)
--- NOTE | 2017-11-10 08:28 | P.PCN ---
Date of Procedure: 11/10/17 Procedure(s) Performed: PREOPERATIVE DIAGNOSIS: Lumbar radiculopathy in left L4-5 distribution POSTOPERATIVE DIAGNOSIS: Lumbar radiculopathy in left L4-5 distribution PROCEDURE 1. Transforaminal epidural steroid injection under fluoroscopic guidance at Left L4-5 level. 2. Lumbar epidurogram : ANESTHESIA: Local with 1% lidocaine 3 ml , moderate sedation with intravenous Versed 2 mg and fentanyle 100 micrograms EBL: Minimal PROCEDURE INDICATION: The patient with low back pain and radiculopathy symptoms unresponsive to conservative treatment. PROCEDURE DESCRIPTION / TECHNIQUE: The patient was seen and identified in the preoperative area. Risks, benefits , complications, and alternatives were discussed with the patient. The patient agreed to proceed with the procedure and signed the consent. IV was started, and vital signs were stable. Patient was taken to the OR and time out was completed. The patient was placed in the prone position on procedure table and a pillow was placed under the abdomen to reduce lumbar lordosis. The lumbosacral area was prepped and draped in the usual sterile fashion. Critical pause was taken. Vital signs were closely monitored during the procedure. Conscious sedation was used during the procedure to decrease patients anxiety. Using oblique fluoroscopy, the chin of the ``Evaristo dog at Left L4-5 level was identified, and the skin and deeper tissues just below was localized with 1 % lidocaine. Subsequently, a 22-gauge 3.5-inch spinal needle was advanced under a tunneled view fluoroscopic guidance just underneath the chin of the ``Evaristo dog at the left L4-5 . Under lateral fluoroscopy, the needle was then advanced to the posterior border of the left L4-5 interforaminal space. After negative aspiration of CSF and blood and with no paresthesias, 1 mL Isovue 200 contrast dye was injected excellent epidurogram and outlining of the nerve root Subsequently, 3 mL of block solution containing 40 mg Depomedrole and 2 mL of Lidocaine 1% was injected. Needle was removed and the same . At the end of the procedure, skin was cleansed, and bandages were applied. COMPLICATIONS:none DISPOSITION / PLANS: The patient was placed in a supine position and transferred to the recovery area in a stable condition for observation. There was no evidence of lower extremity motor or sensory deficit after the procedure. Patient was discharged from the recovery room after meeting discharge criteria. Home discharge instructions were given to the patient by the staff. The patient was reexamined prior to discharge.
[2017-11-10] MEDS ORDERED: IV FLUID CONTINUATION 1,000 ML IV ONE ×4 (08:35)
[2017-11-10 08:58] VITALS: BP 133/78; PULSE 78; RESP 18
--- NOTE | 2017-11-10 10:07 | FL ---
Fluoroscopy HISTORY: Pain 16 seconds fluoroscopy time supplied to the referring clinician. 2 intraoperative C-arm images docum ent the procedure. See dictated report from anesthesia.
== END 2017-11-10 09:18 | disposition home or self-care (01) ==
LOC: ORPAIN 06:55
PROVIDERS: ATTEND Specialist
DX: M54.16 Radiculopathy, lumbar region (principal); M96.1 Postlaminectomy syndrome, not elsewhere classified
CPT/HCPCS: 64483; J2250; J1030; J3010; Q9966

== ENCOUNTER → 2017-11-27 | Outpatient (CLI) | payer MEDICAID ==
[2017-11-27 11:58] VITALS: BP 137/79; PULSE 62; RESP 18
--- NOTE | 2017-11-27 12:22 | P.PAINPG ---
Subjective Progress Note Date: 11/27/17 This is 62 years old male with a chronic history of severe low back pain with radiation to the left lower extremity, diagnosed with failed back surgery syndrome lumbar area, and lumbar radiculopathy, we have done left side transforaminal epidural steroid injection at L4 5 levels , x2 , her pain improved significantly, currently her pain level in 1-2, she denies any motor or sensory deficit, he is able to function, she is using Tylenol when necessary Objective - Vital Signs Vital signs: Vital Signs Temp Pulse 62 11/27/17 11:53 Resp 18 11/27/17 11:53 BP 137/79 11/27/17 11:53 Pulse Ox 100 11/27/17 11:53 Intake & Output 11/26/17 11/27/17 11/27/17 18:59 06:59 18:59 Weight 74.843 kg - Exam Physical Examinations : 1-Constitutiona : Cooperative , not in acute distress . 2- musculoskeltal : Lumber spine moter stegnth lower extremities ,thigh and legs 5/5 Right side , 5/5 Left side Assessment and Plan Plan: Assessment and plan=1-failed back surgery syndrome and lumbar area. 2-lumbar radiculopathy. Pain improved after left-sided transforaminal epidural steroid injection at L4 5 , patient will follow up with the pain clinic when necessary Time with Patient: Less than 30 PQRS Measure Charge Sheet Measure #130: Documentation of Current Meds in Medical Chart: Patient's medications documented in chart Measure #226: Tobacco Use: Screen & Cessation Intervention: Pt not a tobacco user Measure #111: Pneumonia Vaccination: Pneumococcal vaccine NOT administered or previously given Measure #47: Advance Care Plan: Advance care planning discussed & documented, pt chose/unable to give Measure #412: Opioid Treatment Agreement: No documentation of signed opioid treatment agreement Measure #408: Opioid Therapy Follow-up Evaluation: Patient had NO f/u eval minimum every 3 months during opioid therapy Measure #317: Preventitive Care & Scrn High Bld Press & F/U: Normal blood pressure, f/u not required Measure #128: Body Mass Index (BMI) Screening & Follow-up: BMI documented ABOVE normal parameters - f/u documented Measure #131: Pain Assessment & Follow-up: Pain positive & plan documented, Pain negative & plan not documented, Follow-up PRN Measure #431: Unhealthy Alcohol Use Preventative Care & Scrn: Patient not identified as an unhealthy alcohol user PQRS Narrative: Smoking Status Never smoker Do You Want the Pneumonia No Vaccine AT THIS TIME? Blood Pressure 137/79 Pain Intensity [Left Ankle] 2 Scale Used Numeric (1 - 10) Hx Alcohol Use (MH) No Home Medications: Ambulatory Orders Multivitamin [Multivitamins Adult Gummies] 1 each PO HS 01/02/17 Acetaminophen [Tylenol Arthritis] 650 mg PO HS PRN 07/07/17 Biotin 10,000 mcg PO HS 11/03/17 Magnesium 200 mg PO HS 11/03/17 Controlled Substance Measures - Controlled Substance Measures Is patient prescribed a controlled substance at discharge?: No When asked, does pt state using other controlled substances?: No If prescribed controlled substance>3 days was MAPS reviewed?: No If Rx opioid, was Start Talking consent form obtained?: No If opioid is for acute pain is fill amount 7 days or less?: No Was information provided regarding opioid addiction?: No
== END | disposition home or self-care (01) ==
LOC: PNWHC3 11:45
PROVIDERS: ATTEND Specialist
DX: M96.1 Postlaminectomy syndrome, not elsewhere classified (principal); M54.12 Radiculopathy, cervical region; Z79.899 Other long term (current) drug therapy
CPT/HCPCS: 99211

== ENCOUNTER 2017-11-28 11:00 | Day surgery (SDC) | payer MEDICAID ==
[2017-11-14 11:06] VITALS: BMI 28.3
[~2017-11-28 11:00] MED LIST changes: +DEXAMETHASONE SOD PHOSPHATE 10 MG/ML 1 ML VIAL IV ONE; +LIDOCAINE 1% 20 ML VIAL (10MG/ML) FOR IV START INTRADERMA PRN; +MIDAZOLAM 2 MG/2 ML VIAL IV PRN; +ONDANSETRON 4 MG/2 ML VIAL IVP ONE; +Pre Op ABX Message 1 EACH MISC MISCELLANE ONE; +fentaNYL (PF) 50 MCG/ML 2 ML AMP IV PRN
[2017-11-28] MEDS ORDERED: KETAMINE 10 MG/ML 20 ML VIAL ONE (12:26)
[2017-11-28] MEDS ORDERED: LIDOCAINE 1% INJ 10MG/ML (20 ML MDV) ONE (12:26)
[2017-11-28] MEDS ORDERED: fentaNYL (PF) 50 MCG/ML 2 ML AMP ONE (12:26)
[2017-11-28] MEDS ORDERED: PROPOFOL 10 MG/ML 20 ML VIAL IV ONE (12:26)
[2017-11-28] MEDS ORDERED: MIDAZOLAM 2 MG/2 ML VIAL ONE (12:26)
[2017-11-28] MEDS ORDERED: LIDOCAINE 1% (PF) 10 MG/ML (30 ML SDV) SQ ONE (12:26)
[2017-11-28] MEDS ORDERED: HYDROmorphone 1 MG/ML 1 ML SYRINGE IVP PRN (12:29)
[2017-11-28] MEDS ORDERED: HYDROcodone/APAP 5-325MG 1 EACH TAB PO PRN ×2 (12:29)
[2017-11-28] MEDS ORDERED: HYDROmorphone 0.5 MG/0.5 ML SYRINGE IVP PRN (12:29)
[2017-11-28] MEDS ORDERED: LACTATED RINGERS 1,000 ML IV SCH (12:30)
[2017-11-28] MEDS ORDERED: ceFAZolin 1,000 MG/50 ML BAG (PMX) IVPB ONE (12:32)
[2017-11-28 13:26] VITALS: TEMP 97.2
[2017-11-28 13:33] VITALS: RESP 16
--- NOTE | 2017-11-28 13:41 | P.OP ---
Date of Procedure: 11/28/17 Preoperative Diagnosis: 1. 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 Clinically she had physical exam findings consistent with a second webspace neuroma. She had transient improvement following a second webspace corticosteroid injection. She continued to have pain that was refractory to nonsurgical treatment and requested surgery. My recommendation was to explore the webspace and resect the neuroma. She understands the potential risks and complications of surgery including but not limited to risks from anesthesia, risk of superficial infection, risk of deep infection, risk of delayed wound healing, risk of wound necrosis, risk of continued pain, risk of her recurrent neuroma, risk of angular deformity of the toes, risk of vascular injury to the toes, risk of resection of IX nerve related tissue, generalized to satisfaction with surgery, risk of worsened pain, risk of DVT, risk of PE, and risk of other medical complications. The patient voiced her understanding of these potential complications particularly continued or worsening pain and provided her consent to go forward with surgery. Description of Procedure: The patient was identified in the preoperative holding area and the correct right foot and second webspace with marked with my initials. I reviewed the consent form with the patient and her . All their questions were answered. The patient was then brought back to the operating room where she was positioned on the OR table and a MAC anesthetic was administered. A tourniquet was applied to the proximal aspect of the right leg. All bony prominences were well-padded. A timeout was performed identifying the correct patient, operative extremity, and procedure. The patient's leg was then elevated, exsanguinated with an Esmarch bandage, and the tourniquet was inflated to 250 mmHg. I began by outlining a longitudinal incision in the second webspace. Skin incision was made with a scalpel and dissection was carried down carefully through the subcutaneous tissue with tenotomy scissors. Crossing veins were controlled with electrocautery. A [place] elevator was placed under the transverse metatarsal ligament which was sharply released. I identified the lumbrical tendon and carefully retracted it. A Gelpi retractor was placed between the metatarsal heads to aid in distraction and visualization. A large bulbous mass was identified distally in the wound and tracked proximally to normal-appearing nerve. The nerve was transected sharply proximally and distally. The nerve and mass was sent to pathology. The wound was copiously irrigated. The tourniquet was let down with a total tourniquet time of 15 minutes. All bleeders were controlled with electrocautery. The wound was then closed in layers with 2-0 Vicryl the subcu and 3-0 nylon for the skin. All toes were with brisk capillary refill at the conclusion of the procedure. A sterile dressing consisting of Betadine soaked Adaptic, 4 x 4's, webrill and an Chandu wrap was applied. The patient was then awoken from her anesthetic, transferred to a gurney and brought to PACU in to the procedure well.
[2017-11-28] MEDS ORDERED: HYDROcodone/APAP 5-325MG 1 EACH TAB PO ONE (13:50)
[2017-11-28] MEDS ORDERED: HYDROmorphone 1 MG/ML 1 ML SYRINGE IVP ONE ×2 (14:08→14:13)
[2017-11-28 14:16] VITALS: BP 133/71; PULSE 59
== END 2017-11-28 14:54 | disposition home or self-care (01) ==
LOC: OR 11:00
PROVIDERS: ATTEND Orthopaedic Surgery
DX: G57.61 Lesion of plantar nerve, right lower limb (principal); M19.071 Primary osteoarthritis, right ankle and foot; M20.31 Hallux varus (acquired), right foot; Z82.49 Family history of ischemic heart disease and other diseases of the circulatory system; Z79.891 Long term (current) use of opiate analgesic
CPT/HCPCS: 88304; 28080; J2250; J1100; J2405; J2001 ×2; J3010; J1170; J0690; J2704

== ENCOUNTER → 2018-02-02 | Outpatient (CLI) | payer MEDICAID ==
--- NOTE | 2018-02-03 10:21 | MM ---
Reason for exam: screening (asymptomatic). Last mammogram was performed 1 year ago. History: Patient is postmenopausal. Family history of breast cancer in maternal aunt at age 50. Benign excisional biopsy of the right breast, February 03, 2006. Reductions of both breasts, 1999. Took hormonal contraceptives for 5 years beginning at age 23. Physical Findings: A clinical breast exam by your physician is recommended on an annual basis and results should be correlated with mammographic findings. MG 3D Screening Mammo W/Cad Bilateral CC and MLO view(s) were taken. Prior study comparison: January 31, 2017, bilateral MG 3d screening mammo w/cad. January 31, 2016, bilateral MG 3d screening mammo w/cad. The breast tissue is heterogeneously dense. This may lower the sensitivity of mammography. Benign appearing bilateral calcifications. No suspicious abnormality. Post surgical change bilaterally. No significant changes when compared with prior studies. ASSESSMENT: Benign, BI-RAD 2 RECOMMENDATION: Routine screening mammogram of both breasts in 1 year.
== END ==
LOC: RADMAMWWP 16:33
PROVIDERS: ATTEND Obstetrics & Gynecology
DX: Z12.31 Encounter for screening mammogram for malignant neoplasm of breast (principal); Z80.3 Family history of malignant neoplasm of breast
CPT/HCPCS: 77063; 77067

== ENCOUNTER → 2018-03-20 | Day surgery (SDC) | payer MEDICAID ==
[2018-03-16 10:11] VITALS: BMI 28.3
[~2018-03-20] MED LIST changes: +HYDROmorphone 1 MG/ML 1 ML SYRINGE IVP PRN; +LACTATED RINGERS 1,000 ML IV ONE; +LIDOCAINE 1% 20 ML VIAL (10MG/ML) FOR IV START INTRADERMA ONE; -LIDOCAINE 1% 20 ML VIAL (10MG/ML) FOR IV START INTRADERMA PRN; +LIDOCAINE 1% INJ 10MG/ML (20 ML MDV) ONE; +MIDAZOLAM (PF) 2 MG/2 ML VIAL IV PRN; -MIDAZOLAM 2 MG/2 ML VIAL IV PRN; +MIDAZOLAM 2 MG/2 ML VIAL ONE; +MORPHINE SULFATE 10 MG/ML SYRINGE ONE; +PROPOFOL 10 MG/ML 20 ML VIAL IV ONE; -Pre Op ABX Message 1 EACH MISC MISCELLANE ONE; +ROPIVACAINE 5 MG/ML 30 ML VIAL ONE; +SUCCINYLCHOLINE CHLORIDE 100 MG/5 ML SYR IV ONE; +ceFAZolin IN SWFI 2 GM/20 ML SYRINGE IVP ONE; +ePHEDrine SULFATE/0.9% NACL/PF 50 MG/5 ML SYRINGE IV ONE; +fentaNYL (PF) 50 MCG/ML 2 ML AMP ONE
[2018-03-20 13:47] VITALS: TEMP 96.9
--- NOTE | 2018-03-20 14:13 | FL ---
EXAMINATION TYPE: FL guidance operating room DATE OF EXAM: 03/20/2018 HISTORY: Flouroscopy time 4 seconds of fluoroscopy provided. IMPRESSION: 1. Fluoroscopy time.
--- NOTE | 2018-03-20 14:14 | XR ---
EXAMINATION TYPE: XR foot limited RT DATE OF EXAM: 03/20/2018 COMPARISON: NONE HISTORY: Intraoperative image TECHNIQUE: One view submitted FINDINGS: Postsurgical change involving the first digit noted IMPRESSION: Intraoperative image
[2018-03-20 14:33] VITALS: BP 129/71; PULSE 81; RESP 16
--- NOTE | 2018-03-20 15:05 | P.OP ---
Date of Procedure: 03/20/18 Preoperative Diagnosis: 1. Arthritic right hallux varus Postoperative Diagnosis: 1. Arthritic right hallux varus Procedure(s) Performed: 1. Right first MTP fusion Anesthesia: ONEYDA, regional Surgeon: Delvin [employer] Division Chair #1: Karl Acuna Estimated Blood Loss (ml): 10 IV fluids (ml): 1,000 Pathology: none sent Condition: stable Disposition: PACU Indications for Procedure: The patient is a very pleasant previously healthy 62-year-old female who is well -known to my practice. She previously underwent a Cabello's neuroma excision in her right foot and a with this. Prior to her neuroma excision she had a mild hallux varus deformity and degenerative changes of the joint. Following surgery she had almost complete relief of her pain but developed worsening of her hallux varus deformity. She also developed mild varus angulation of the second toe at the MTP joint. Her repeated x-rays showed a degenerative hallux varus deformity. We discussed nonsurgical treatment versus operations to correct her deformity. She requested surgery. We discussed joint sparing procedures and effusion. Due to the patient's age and degenerative changes I recommended a first MTP fusion which in my opinion would have the most durable outcome with low-dose risk of recurrence. The patient agreed and consent for surgery. We discussed potential risks and competitions of surgery including but not limited to risk of anesthesia, superficial infection, deep infection, delayed wound healing, wound necrosis, damage to local blood vessels or nerves, risk of nonunion of the fusion site, risk of malunion fusion site, risks and metacarpal where, risk of continued pain, risk of overcorrection of the deformity, risk of under correction of the deformity, risk of swelling, risk of generalized satisfaction surgery, risk of inability to regain preinjury level of function, risk of DVT, risk of PE, risk of other medical complications, and possibly loss of life or limb. The patient provided her verbal and written consent to go forward with surgery. We also discussed potentially correcting any deformity of the second toe with an MTP capsulotomy, extensor tenotomy, and flexor to extensor tendon transfers. Description of Procedure: The patient was identified in preop holding and the correct right leg was marked my initials. I reviewed the consent form with the patient and all of her questions were answered. The patient was given a popliteal and saphenous nerve block by anesthesia. She was brought back to the operating room position of the or table where general anesthetic and preoperative antibiotics were administered. The tourniquet was applied proximal aspect of the right leg. All bony prominences were well-padded. The right leg was then prepped and draped in standard sterile fashion. Prior to surgery timeout was performed identifying the correct patient, operative extremity, and procedure. The patient's leg was then elevated, exsanguinated with an Esmarch bandage, and the tourniquet was inflated to 250 mmHg. I began by outlining a longitudinal incision directly over the first MTP joint. Skin incision with a scalpel and dissection was carried down carefully to the subcutaneous tissue with tenotomy scissors. The EHL tendon sheath was identified and incised under tingling in line with the skin incision. The EHL tendon was then retracted laterally. The capsule was incised under drilling in line with the skin incision. On inspection of the joint there were large dorsal osteophytes off the distal first metatarsal and proximal family's. There were several loose bodies within the joint. There was almost full- thickness loss of cartilage from the dorsal half of the first metatarsal head. The cartilage the base the proximal phalanx was relatively intact. He K wires placed on the central axis of the first metatarsal and a concave reamer was used to remove the articular cartilage. K wire was withdrawn and used to perforate the subchondral bone of the first metatarsal head to facilitate fusion. The K wire was then placed down the central aspect proximal phalanx. A convex reamer was sized and then used to remove the articular cartilage. The K wire was withdrawn and used to perforate the subchondral bone to facilitate fusion. The wound was copiously irrigated. The joint was then positioned for fusion in slight valgus and dorsiflexion. An eccentric replaced K wire was then placed across the joint holding the joint for fusion. Clinically the toe appeared straight. Fluoroscopy was used to verify correction of the varus deformity. A flat plate was used to assess position of the toe which appeared adequate. A nonlocking 2.7 mm lag screw was placed from the base of the proximal phalanx across the joint and into the metatarsal head. A precontoured first MTP fusion place was then placed over the dorsal aspect of the joint. A 2.7 mm nonlocking screws placed distally in the proximal phalanx. A 2.7 mm nonlocking screw was placed proximally in the first metatarsal and the most optimal portion of the oblong hole to generate additional compression across the joint. The remaining holes of the plate were filled with 2.7 mm locking screws. Clinically the toe appeared straight. Final fluoroscopic images were taken. Attention was then turned to the second toe. On inspection of the foot the toe appeared straight with no residual deformity. X-rays also showed minimal deformity. At that point I decided to not perform any additional procedures on the second toe as it appeared straight. The wound was copiously irrigated. The capsule the first MTP joint was closed with a running 2-0 PDS. The deep subcu was reapproximated using interrupted 3-0 Monocryl. Skin was closed with a running 3-0 Monocryl subcuticular stitch. I verified that all instrument, sponge, and sharp counts were correct. A sterile dressing was applied followed by well-padded bulky Tai splint with the ankle in neutral. The patient was then awoken from her anesthetic, transferred to a relizabeth, and brought to PACU procedure well. Karl Acuna PAC was required as a skilled sound assistant for patient positioning, surgical exposure, preparation of the joint, placement of hardware, closure of wound, application of splint.
--- NOTE | 2018-03-21 15:25 | P.ONQ ---
Anesthesiology Proc Note - PNB - Peripheral Nerve Block Performed Right Popliteal Single Time Out Performed: Yes (right saphenous nerve block) Procedure Start Time: 10:25 Procedure Stop Time: :30 Indication: Acute Post-Operative Pain, Requested by physician Sedation Type: Sedate with meaningful contact maintained Preparation: Sterile Prep Needle Size: 50mm (2") Needle Gauge: 21 Technique: Ultrasound Injectate: 0.5% Ropivacaine (see comment for volume) (Ropivacaine 0.5% 20 mL for popliteal block and an 10 mL for saphenous) Blood Aspirated: No Pain Paresthesia on Injection Noted: No Resistance on Injection: Normal Events: Uneventful and Well Tolerated
== END | disposition home or self-care (01) ==
LOC: OR 09:20
PROVIDERS: ATTEND Orthopaedic Surgery
DX: M20.11 Hallux valgus (acquired), right foot (principal); M19.071 Primary osteoarthritis, right ankle and foot
CPT/HCPCS: 64450; 73620; 28750; C1713; J2250 ×2; J1100; J2270; J2405; J2001; J3010; J2795; J0330; J2704; J0690

== ENCOUNTER → 2018-04-09 | Outpatient (CLI) | payer MEDICAID ==
[2018-04-09 11:10] LABS: HCT 40.3 % (34.0-46.0); HGB 12.6 gm/dL (11.4-16.0); MCH 26.4 pg (25.0-35.0); MCHC 31.4 g/dL (31.0-37.0); MCV 84.2 fL (80.0-100.0); Mean Platelet Volume 6.7; Platelet Count 321 k/uL (150-450); RBC 4.78 m/uL (3.80-5.40); RDW 15.4 % (11.5-15.5); WBC 7.8 k/uL (3.8-10.6)
[2018-04-09 17:12] LABS: Albumin 4.6 g/dL (3.80-4.90); Albumin/Globulin Ratio 2.3 (1.20-2.10); Anion Gap 7.8 mmol/L (4.00-12.00); Calcium 9.3 mg/dL (8.7-10.3); Carbon Dioxide 24.2 mmol/L (21.6-31.8); LDL Cholesterol,Calculated 165.8 mg/dL (0.0-131.0); Potassium 4.4 mmol/L (3.5-5.5); Total Bilirubin 0.6 mg/dL (0.3-1.2); Total Protein 6.6 g/dL (6.2-8.2); VLDL Calculation 27.2 mg/dL (5.00-40.00)
== END ==
LOC: LABWHC1 10:26
PROVIDERS: ATTEND Obstetrics & Gynecology
DX: Z13.220 Encounter for screening for lipoid disorders (principal); Z13.1 Encounter for screening for diabetes mellitus; Z13.29 Encounter for screening for other suspected endocrine disorder
CPT/HCPCS: 36415; 80053; 80061; 84439; 84443; 84479; 85027

== ENCOUNTER 2018-04-15 06:56 | Day surgery (SDC) | payer MEDICAID ==
[2018-04-10 15:05] VITALS: BMI 28.3
[~2018-04-15 06:56] MED LIST changes: -DEXAMETHASONE SOD PHOSPHATE 10 MG/ML 1 ML VIAL IV ONE; -HYDROmorphone 1 MG/ML 1 ML SYRINGE IVP PRN; -LACTATED RINGERS 1,000 ML IV ONE; -LIDOCAINE 1% 20 ML VIAL (10MG/ML) FOR IV START INTRADERMA ONE; +LIDOCAINE 1% 20 ML VIAL (10MG/ML) FOR IV START INTRADERMA PRN; -LIDOCAINE 1% INJ 10MG/ML (20 ML MDV) ONE; -MIDAZOLAM (PF) 2 MG/2 ML VIAL IV PRN; -MIDAZOLAM 2 MG/2 ML VIAL ONE; -MORPHINE SULFATE 10 MG/ML SYRINGE ONE; -ONDANSETRON 4 MG/2 ML VIAL IVP ONE; -PROPOFOL 10 MG/ML 20 ML VIAL IV ONE; -ROPIVACAINE 5 MG/ML 30 ML VIAL ONE; -SUCCINYLCHOLINE CHLORIDE 100 MG/5 ML SYR IV ONE; -ceFAZolin IN SWFI 2 GM/20 ML SYRINGE IVP ONE; -ePHEDrine SULFATE/0.9% NACL/PF 50 MG/5 ML SYRINGE IV ONE; -fentaNYL (PF) 50 MCG/ML 2 ML AMP IV PRN; -fentaNYL (PF) 50 MCG/ML 2 ML AMP ONE
[2018-04-15 07:19] VITALS: RESP 16; TEMP 98.2
[2018-04-15] MEDS ORDERED: LIDOCAINE 1% 20 ML VIAL (10MG/ML) FOR IV START INTRADERMA ONE (07:28)
[2018-04-15] MEDS ORDERED: PROPOFOL 10 MG/ML 20 ML VIAL IV ONE (07:39)
--- NOTE | 2018-04-15 07:42 | P.GSHP ---
History of Present Illness H&P Date: 04/15/18 Chief Complaint: Colon cancer screening Patient today for colonoscopy. Last colonoscopy 5 years ago. History of adenomas. No bowel related complaints. No rectal bleeding. Past Medical History Past Medical History: Musculoskeletal Disorder Additional Past Medical History / Comment(s): past hx. of h pylori, past hx. 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 History of Any Multi-Drug Resistant Organisms: None Reported Past Surgical History: Bladder Surgery, Breast Surgery, Cholecystectomy, Tubal Ligation Additional Past Surgical History / Comment(s): Hx lumbar laminectomy bilateral L4-L5 with discectomy 2014, & redo 2016; breast reduction. bladder suspension, pain clinic procedures, removal Cabello's neuroma, metatarsal phalangeal fusion right big toe 2017 Past Anesthesia/Blood Transfusion Reactions: No Reported Reaction Smoking Status: Never smoker - Past Family History Sister(s) Family Medical History: Cancer Additional Family Medical History / Comment(s): Salivary Gland CA/ Father Family Medical History: Coronary Artery Disease (CAD), CVA/TIA Mother Family Medical History: Dementia, Pulmonary Embolus Medications and Allergies Home Medications Medication Instructions Recorded Confirmed Type HYDROcodone/APAP 10-325MG [[place] 1 tab PO Q4HR PRN 7 Days #40 tab 03/20/1804/15 Rx 10-325] Allergies Allergy/AdvReac Type Severity Reaction Status Date / Time suture AdvReac Itching Verified 04/15/18 07:07 Surgical - Exam Vital Signs Temp Pulse Resp BP Pulse Ox 98.2 F 73 16 136/70 95 04/15/18 07:17 04/15/18 07:17 04/15/18 07:17 04/15/18 07:17 04/15/18 07:17 Physical exam: General: Well-developed, well-nourished HEENT: Normocephalic, sclerae nonicteric Abdomen: Nontender, nondistended Extremities: No edema Neuro: Alert and oriented Assessment and Plan (1) Colon cancer screening Narrative/Plan: Will proceed with colonoscopy at time Current Visit: Yes Status: Acute Code(s): Z12.11 - ENCOUNTER FOR SCREENING FOR MALIGNANT NEOPLASM OF COLON SNOMED Code(s): 058653961
--- NOTE | 2018-04-15 07:55 | P.PCN ---
Date of Procedure: 04/15/18 Procedure(s) Performed: PREOPERATIVE DIAGNOSIS: Colon cancer screening, history of polyps POSTOPERATIVE DIAGNOSIS: Mild diverticulosis, melanosis coli PROCEDURE: Colonoscopy [place] [facility] [place] Clint Eller M.D. SPECIMENS: None ENDOSCOPIC PROCEDURE: The patient was placed on the endoscopy table in the left decubitus position. The Olympus colonoscope was inserted into the anus and passed under direct visualization to the base of the cecum. The appendiceal orifice was visualized. From that point the scope was slowly withdrawn inspecting all surfaces carefully. There were no neoplastic inflammatory or polypoid lesions throughout the cecum, ascending, transverse, descending, sigmoid and rectum. There was minimal left-sided diverticulosis noted. 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 Digital rectal examination was normal. The patient was taken to the recovery room in stable condition per anesthesia guidelines. RECOMMENDATIONS: Increase fiber. Follow-up colonoscopy 5 years
[2018-04-15 08:14] VITALS: BP 118/77; PULSE 61
== END 2018-04-15 08:30 | disposition home or self-care (01) ==
LOC: ORWHC2ENDO 06:56
PROVIDERS: ATTEND Surgery
DX: Z12.11 Encounter for screening for malignant neoplasm of colon (principal); K57.30 Diverticulosis of large intestine without perforation or abscess without bleeding; Z86.010 Personal history of colon polyps; K63.89 Other specified diseases of intestine; Z82.49 Family history of ischemic heart disease and other diseases of the circulatory system; Z90.49 Acquired absence of other specified parts of digestive tract; Z88.9 Allergy status to unspecified drugs, medicaments and biological substances
CPT/HCPCS: J2704; G0105; 45378

== ENCOUNTER → 2018-04-29 | Outpatient (CLI) | payer MEDICAID ==
--- NOTE | 2018-04-29 11:32 | BD ---
EXAMINATION TYPE: Axial Bone Density DATE OF EXAM: 04/29/2018 COMPARISON: 04/05/2016 CLINICAL HISTORY: Height: 63 IN Weight: 174 LBS RISK FACTORS HISTORY OF: Surgery to Spine: 2 SURGERIES TO L-SPINE When: 2014 AND 2015 Active: YES Postmenopausal woman: AGE 51 MEDICATIONS: Additional Medications: VITAMINS EXAM MEASUREMENTS: Bone mineral densitometry was performed using the [employer] System. L-SPINE NOT DONE. PT HAD L-SPINE SURGERY IN 2014 AND 2015 Bone mineral density about the R hip (g/cm2): 0.949 Bone mineral density about the L hip (g/cm2): 0.904 T Score values are as follows: -----R Neck: -0.6 -----L Neck: -1.0 -----R Total: 0.1 -----L Total: 0.3 Bone mineral density has: Decreased -1.2% since study of: 04/05/2016 Bone mineral density about the L Wrist (g/cm2): 0.723 T Score values are as follows: -----Dist. R+U: 0.0 -----Prox. R+U: 0.8 -----Radius total: 0.8 Bone mineral density BASELINE IMPRESSION: No evidence for osteoporosis or osteopenia. NOTE: T-SCORE=SD OF THE YOUNG ADULT MEAN.
== END | disposition home or self-care (01) ==
LOC: RADBDWWP 07:43
PROVIDERS: ATTEND Obstetrics & Gynecology
DX: Z13.820 Encounter for screening for osteoporosis (principal)
CPT/HCPCS: 77080

== ENCOUNTER 2018-07-29 09:34 | Day surgery (SDC) | payer MEDICAID ==
[2018-07-21 09:59] VITALS: BMI 28.3
[~2018-07-29 09:34] MED LIST changes: +DEXAMETHASONE SOD PHOSPHATE 10 MG/ML 1 ML VIAL IV ONE; +HYDROmorphone 0.5 MG/0.5 ML SYRINGE IVP PRN; +SCOPOLAMINE 1.5MG/72HR PATCH TRANSDERM ONE; +ceFAZolin IN SWFI 2 GM/20 ML SYRINGE IVP ONE
[2018-07-29] MEDS: ONDANSETRON 4 MG/2 ML VIAL IVP ONE ×2 (10:45→13:22)
[2018-07-29] MEDS ORDERED: fentaNYL (PF) 50 MCG/ML 2 ML AMP IVP ONE (10:47)
[2018-07-29] MEDS ORDERED: MIDAZOLAM (PF) 2 MG/2 ML VIAL IVP ONE (10:47)
[2018-07-29] MEDS ORDERED: fentaNYL (PF) 50 MCG/ML 2 ML AMP ONE (11:10)
[2018-07-29] MEDS ORDERED: ROPIVACAINE 5 MG/ML 30 ML VIAL ONE (11:10)
[2018-07-29] MEDS ORDERED: LIDOCAINE 0.5% (PF) 5 MG/ML (50 ML SDV) ONE (11:10)
[2018-07-29] MEDS ORDERED: LIDOCAINE 1% INJ 10MG/ML (20 ML MDV) ONE (11:10)
[2018-07-29] MEDS ORDERED: KETAMINE 10 MG/ML 20 ML VIAL ONE (11:10)
[2018-07-29] MEDS ORDERED: PROPOFOL 10 MG/ML 20 ML VIAL IV ONE (11:10)
--- NOTE | 2018-07-29 11:14 | P.ONQ ---
Anesthesiology Proc Note - PNB - Peripheral Nerve Block Performed Right Saphenous/Obturator Single Time Out Performed: Yes Procedure Start Time: 10:46 Indication: Acute Post-Operative Pain Specifically requested for management of pain by DrThanh: Delvin Sharif Sedation Type: Sedate with meaningful contact maintained Preparation: Sterile Prep Position: Supine Catheter: None Needle Types: Other (see comment) (pajunk) Needle Size: 100mm (4") Needle Gauge: 21 Technique: Ultrasound Injectate: Other (see comment) (0.25% ropivacaine/0.5% lidocaine 20 mL) Adjunct: Epinephrine (see comment for dilution ratio) (1:200,000) Blood Aspirated: No Pain Paresthesia on Injection Noted: No Resistance on Injection: Normal Events: Uneventful and Well Tolerated
--- NOTE | 2018-07-29 11:16 | P.ONQ ---
Anesthesiology Proc Note - PNB - Peripheral Nerve Block Performed Right Popliteal Single Time Out Performed: Yes Procedure Start Time: 10:46 Indication: Acute Post-Operative Pain Specifically requested for management of pain by DrThanh: Delvin Sharif Sedation Type: Sedate with meaningful contact maintained Preparation: Sterile Prep Position: Supine Catheter: None Needle Types: Other (see comment) (PAJUNK) Needle Size: 50mm (2") Needle Gauge: 21 Technique: Ultrasound Injectate: Other (see comment) (0.25% ropivacaine/0.5% lidocaine 20 mL) Adjunct: Epinephrine (see comment for dilution ratio) (1:200,000) Blood Aspirated: No Pain Paresthesia on Injection Noted: No Resistance on Injection: Normal Events: Uneventful and Well Tolerated
[2018-07-29 12:47] VITALS: TEMP 97
[2018-07-29 12:49] VITALS: RESP 16
--- NOTE | 2018-07-29 12:56 | P.OP ---
Date of Procedure: 07/29/18 Preoperative Diagnosis: 1. Angular deformity right second toe at the MTP joint 2. Angular deformity right third toe at the MTP joint 3. Metatarsalgia, right foot 4. History of prior second webspace neuroma excision and first MTP fusion for idiopathic hallux varus 5. Chronic pain currently taking [place] and cannabis oil Postoperative Diagnosis: Same Procedure(s) Performed: 1. Correction of angular deformity right second toe with MTP capsulotomy, Z- lengthening long extensor tendon, and EDB tendon transfer 2. Correction of angular deformity right third toe with MTP capsulotomy and long extensor tenotomy Anesthesia: JEANIE, regional Surgeon: Delvin Sharif Personal Injury Paralegal #1: Karl Acuna Estimated Blood Loss (ml): 5 IV fluids (ml): 500 Pathology: other (Second MTP synovium sent to pathology) Condition: stable Disposition: PACU Indications for Procedure: The patient is a very pleasant 63-year-old female who is well known to our office. The patient has had a long-standing history of problems with her extremities and back. She has been seeing me for several years in regards to her right foot. She was initially managed for metatarsalgia and a second webspace neuroma. She had injections which provided minimal relief. She had an MRI which showed diffuse edema and swelling throughout the foot. She also was referred to rheumatology who did an extensive workup and multiple injections, none of which provided relief and the workup did not reveal any inflammatory etiology. She also is a patient in the pain center and has had multiple injections into her back with minimal relief. In addition she is also had lumbar spine surgery with minimal relief. Ultimately she underwent a second webspace neuroma excision and was found to have a large neuroma. She had some improvement postoperatively and her pain that developed worsening angular deformities mostly of the first MTP joint. Her x-rays prior to the neuroma excision showed hallux varus. We initially attempted to treat her nonsurgically but ultimately she requested surgical correction of her first MTP deformity. Due to her age and degenerative changes on x-ray my recommendation was to perform a first MTP fusion. She also had some deformity of the second toe at that time. She did well from her first MTP fusion but had continued discomfort in the second toe. We have been trying to manage her nonoperatively but ultimately she had worsened pain which she actually due to the deformity of her second and third toes. Clinically her incisions had healed with no sign of infection. The fusion was nicely consolidating on x-ray. She got to the point that she stated that she had increasing pain and would like to go surgical correction of her second and third toe. I do lengthy discussion with her on treatment options. 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 My recommendation was to perform soft tissue releases and tendon transfers to straighten the second and third toe. We also discussed the possibility of requiring a shortening osteotomy. The patient was realistic in her expectations. She understands that at baseline she is on [place] and cannabis oil and she may still have pain in her foot. She also understands the potential for recurrent or worsening deformity. After our lengthy discussion in the office the patient provided her consent to go forward with surgery. Description of Procedure: Significant crepitus holding and the correct right foot was marked with my initials. I reviewed the consent form with the patient and all of her questions were answered. Due to her significant pain after prior surgeries she requested a nerve block which was given by anesthesia. The patient was then brought back to the operating room by anesthesia. A general anesthetic and preoperative antibiotics were administered on the gurney and then she was transferred to the OR table. A tourniquet was applied to the proximal aspect of the right leg. All bony prominences were well-padded. The right leg was then prepped and draped in the standard sterile fashion. Prior to starting surgery timeout was performed identifying the correct patient, operative extremity, and procedure. The patient's leg was then elevated, exsanguinated with an Esmarch bandage, and the tourniquet was inflated to 250 mmHg. I began by outlining the prior scar in the second webspace. Incision was made w ith a scalpel and dissection was carried down carefully through the subcutaneous tissue with tenotomy scissors taking care to not undermine the skin edges. The long extensor tendon over the second toe was identified and a Z-lengthening was performed. The capsule was identified and was released medially and dorsally. At this point I was able to easily reduce the second MTP joint so a shortening osteotomy was not deemed necessary. On inspection the synovium appeared inflamed and hypertrophic. A small amount of the capsule was sharply excised and sent to pathology. At this point I was able to easily straighten the toe. A double-ended 0.0625 K wire was driven through the base of the proximal phalanx out the tip of the toe and then the MTP joint was reduced with the toe in a straight position relative to the first and third toe and the K wire was driven across the MTP joint. The long extensor tendon was then repaired in a lengthened position with 3-0 FiberWire. The EDB tendon was transferred underneath the remnants of the intermetatarsal ligament and repaired with 3-0 FiberWire. Dissection was then carried through the same incision to the third MTP joint. The capsule of the MTP joint was released dorsally. The long extensor tendon was identified and sharply released. I was able to reduce the third toe at the MTP joint and a 0.0625 K wire was driven through the tip of the third toe, across the phalanges and into the metatarsal. Final fluoroscopic images were taken. Clinically the toes appeared straight. The wound was thoroughly irrigated and closed in layers. A sterile dressing was applied. The patient was awoken from her anesthetic, transferred to a gurney, and brought to PACU without the procedure well. Karl Acuna PA-C was required as a skilled portfolio assistant for patient positioning, surgical exposure, retraction, closure of wound, and application of dressing. Plan: The patient is going to discharge home as an outpatient. She can heel weight-bear in a tall boot. Her was instructed on twice daily pin site care with a Q-tip tipped and peroxide. She will follow-up in 2 weeks for soft tissue inspection. Plan - Discharge Summary Discharge Rx Participant: Yes New Discharge Prescriptions: No Action Multivitamins, Thera [Multivitamin (formulary)] 1 tab PO DAILY Magnesium 200 mg PO DAILY Biotin 5 mg PO DAILY Discharge Medication List Biotin 5 mg PO DAILY 07/21/18 [History] Magnesium 200 mg PO DAILY 07/21/18 [History] Multivitamins, Thera [Multivitamin (formulary)] 1 tab PO DAILY 07/21/18 [History] Follow up Appointment(s)/Referral(s): Delvin Sharif MD [Medical Doctor] - 2 Weeks Activity/Diet/Wound Care/Special Instructions: - Heel weight-bearing on your operative foot while wearing the CAM boot. - You may change your operative dressing two days after surgery. After you re move your surgical dressing, you may get your incision wet in the shower. Pat incision dry with a clean towel. Cover incisions with a clean bandage. Do not soak your incisions. - Clean pin sites twice a day with hydrogen peroxide. - Take pain medications as prescribed. Take aspirin as blood clot prevention. Take colace as a stool softener. - Ice and elevate the operative leg for pain and swelling control. - Follow-up in the office with Dr. Sharif in two weeks. Call the office with any questions or concerns, Discharge Disposition: HOME SELF-CARE
--- NOTE | 2018-07-29 12:59 | XR ---
Limited right foot HISTORY: Metatarsal pinning 2 intraoperative C-arm images document the procedure
--- NOTE | 2018-07-29 13:00 | FL ---
Fluoroscopy HISTORY: pins in metatarsals 1 minute 25 seconds fluoroscopy time supplied to the referring clinician. 2 intraoperative C-arm eduin ges document the procedure. See dictated report from orthopedic surgery.
[2018-07-29] MEDS ORDERED: PROMETHAZINE INJ 25 MG/ML 1 ML VIAL IVPB ONE (13:29)
[2018-07-29 14:42] VITALS: BP 111/69; PULSE 65
== END 2018-07-29 16:18 | disposition home or self-care (01) ==
LOC: OR 09:34
PROVIDERS: ATTEND Orthopaedic Surgery
DX: M20.31 Hallux varus (acquired), right foot (principal); M19.071 Primary osteoarthritis, right ankle and foot; M20.61 Acquired deformities of toe(s), unspecified, right foot; M77.41 Metatarsalgia, right foot; G89.29 Other chronic pain; Z86.69 Personal history of other diseases of the nervous system and sense organs; Z79.891 Long term (current) use of opiate analgesic; Z79.899 Other long term (current) drug therapy
CPT/HCPCS: 28313; 28270; 64445; 88305; 73620; C1713; J1100; J2550; J2405; J2001 ×2; J3010; J2795; J2704; J0690; J2250; 64450

== ENCOUNTER → 2018-11-11 | Outpatient (CLI) | payer MEDICAID ==
--- NOTE | 2018-11-11 18:15 | CT ---
EXAMINATION TYPE: CT foot RT wo con DATE OF EXAM: 11/11/2018 COMPARISON: 07/29/2018 fluoroscopy images HISTORY: Other orthopedic aftercare. Complete arthrodesis CT DLP: 291 mGycm Automated exposure control for dose reduction was used. TECHNIQUE: Axial images 3 mm thick sections. Reconstructed images in the coronal and sagittal planes. Three-D reconstructed images performed separately on a separate computer by the technologist are rev iewed. FINDINGS: Postsurgical changes are through the first metatarsal. The ankle mortise appears intact. No significa nt joint effusion is evident. Os navicularis is present, normal variant. Soft tissues appear unremark able. Attention is paid to the first metatarsophalangeal joint space. Please appears to be healing through this region. There is some limitation due to beam hardening isabel fact from fixation hardware. IMPRESSION: THERE APPEARS TO BE FUSION OF THE FIRST METATARSOPHALANGEAL JOINT SPACE WHICH CONTAINS FIXATION HARDW ARE FOR ARTHRODESIS.
== END | disposition home or self-care (01) ==
LOC: RADCTMAIN 11:11
PROVIDERS: ATTEND Orthopaedic Surgery
DX: Z47.89 Encounter for other orthopedic aftercare (principal); M19.071 Primary osteoarthritis, right ankle and foot; M20.31 Hallux varus (acquired), right foot; Z98.1 Arthrodesis status; Z98.890 Other specified postprocedural states

== ENCOUNTER → 2018-11-13 | Outpatient (CLI) | payer MEDICAID | END | disposition home or self-care (01) | LOC: LABWHC1 11:10 | PROVIDERS: ATTEND Orthopaedic Surgery | DX: E55.9 Vitamin D deficiency, unspecified (principal) | CPT/HCPCS: 36415; 82306 ==

== ENCOUNTER 2019-01-14 11:09 | Day surgery (SDC) | payer MEDICAID ==
[2019-01-11 16:14] VITALS: BMI 29.0
[2019-01-14] MEDS ORDERED: LIDOCAINE 1% 20 ML VIAL (10MG/ML) FOR IV START INTRADERMA ONE (11:29)
[2019-01-14] MEDS: LACTATED RINGERS 1,000 ML IV SCH ×2 (11:30→23:47)
[2019-01-14] MEDS ORDERED: DEXAMETHASONE SOD PHOSPHATE 10 MG/ML 1 ML VIAL IV ONE (12:21)
[2019-01-14] MEDS: ONDANSETRON 4 MG/2 ML VIAL IVP ONE ×2 (12:21→17:40)
[2019-01-14] MEDS ORDERED: HYDROmorphone (PF) 1 MG/ML ONE (14:37)
[2019-01-14] MEDS ORDERED: PROPOFOL 10 MG/ML 20 ML VIAL IV ONE (14:37)
[2019-01-14] MEDS ORDERED: MIDAZOLAM 2 MG/2 ML VIAL ONE (14:37)
[2019-01-14] MEDS ORDERED: fentaNYL (PF) 50 MCG/ML 2 ML AMP ONE (14:37)
[2019-01-14] MEDS ORDERED: LIDOCAINE 1% INJ 10MG/ML (20 ML MDV) ONE (14:37)
[2019-01-14] MEDS ORDERED: LACTATED RINGERS 1,000 ML IV ONE (16:45)
--- NOTE | 2019-01-14 16:52 | P.OP ---
Date of Procedure: 01/14/19 Preoperative Diagnosis: 1. Possible nonunion right first MTP joint 2. Symptomatic hardware, right first MTP joint Postoperative Diagnosis: 1. Aseptic, fibrous nonunion first MTP joint 2. Symptomatic hardware, right first MTP joint Procedure(s) Performed: 1. Revision fusion right first MTP joint 2. Hardware removal, deep right foot 3. 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 She's had several surgeries by myself. The first was neuroma excision which she initially did well with. She then developed progressively worsening deformity of the first MTP joint and second toe. Her pre-operative x-rays showed mild hallux varus and her postoperative x-rays showed increasing deformity. We discussed nonsurgical and surgical treatment but she wanted surgery. Due to her age I recommended a fusion. She is also had several surgeries on her second toe for coronal def ormities. She initially did well following her first MTP fusion but then developed progressively worsening pain which she attributed to the hardware. Her x-rays showed a likely nonunion. A computed tomography scan was obtained and the radiologist read it as a healed fusion but my interpretation was either a partial fusion or nonunion. I had a long discussion with the patient and her family on treatment options including observation, continued nonsurgical treatment, and revision surgery. We discussed removing the hardware and visualizing the joint. If the fusion had taken we discussed just removing the hardware. If the fusion hadn't healed we discussed either a revision fusion or Cartiva. After long discussion and careful consideration the patient decided she wanted to go forward with surgery. We discussed potential risks and complications of surgery including but not limited to risk of anesthesia, superficial infection, deep infection, delayed wound healing, superficial wound necrosis, deep wound necrosis, damage to local blood vessels or nerves, nonunion of the fusion site, malunion of the fusion site, some to Romie hardware, DVT, PE, need for further surgery, generalized to satisfaction with surgery, and possibly loss of life or limb. The patient voiced understanding of this and provided her verbal and written consent to go forward with surgery. Operative Findings: There was one broken screw the first metatarsal and a fibrous nonunion of the first MTP joint. There is no evidence of deep infection. Description of Procedure: The patient was identified in preoperative holding and the correct right leg was marked with my initials. I reviewed the consent form with the patient and her daughter who works as a nurse. All their questions were answered. Nerve block was given by anesthesia. The patient was then brought back to the operating room to choose position of the or table where general anesthetic and preoperative and a packs were given. A tourniquet was applied proximal aspect of the right leg. A bump was placed in the right buttock and the rotating the leg to neutral. The left leg was secured to the table with foam and tape. A ramp was placed in the right leg to facilitate imaging. The right leg was then prepped and draped in the standard sterile fashion. Prior to surgery and surgery timeout was performed identifying the correct patient, operative extremity, and procedure. The patient's leg was then elevated, exsanguinated with an Esmarch bandage, the tourniquet was inflated to 250 mmHg. I began by outlining her healed scar over the dorsal aspect of the first MTP joint. Skin incision is made with a scalpel and dissection was carried down carefully to the subcu tissues tissue with tenotomy scissors. The EHL tendon sheath was incised and the tendon was retracted laterally. The capsule of the first MTP joint was sharply incised in line with the skin incision. The plate and screws were identified and carefully removed. There is heterotopic bone that had grown over the plate proximally. The lag screw was then removed with stab incision on the medial aspect of the proximal phalanx. At this point the joint was examined. There appeared to be micromotion at the joint and fibrous tissue at the fusion site. I carefully debrided the fibrous tissue and then was able to pass a 15 blade scalpel into the joint. It was gently levered open. Fibrous tissue was curetted out and the joint was thoroughly irrigated until all fibrous tissue was removed and there was only healthy-appearing bone. A 0.054 K wire was used to perforate the subchondral bone to help facilitate fusion. Augment was injected into the fusion site. The joint was then positioned for fusion in 15 of valgus and 10 of dorsiflexion. An eccentric we placed 0.0625 K wire was placed across the joint holding the joint reduced. A flat plate was used verify position of the fusion. The tip of the toe rested flat on the plate and I was able to passively dorsiflex the tip of the toe. Fluoroscopy was used to verify position of the joint. A precontoured [place] MTP fusion plate with a 10 dorsal bend was applied over the joint and held in place with L tipped K wires. A nonlocking 2.7 mm screw was placed distally into the proximal pharynx holding the plate down to bone. A second nonlocking 2.7 mm screw was placed followed by a locking 2.7 mm screw. Attention was then turned to the proximal aspect of the plate. A nonlocking 3.5 mm screw was placed in the most proximal aspect of the oblong hole to generate compression. The screw was brought fully down generated excellent compression. An additional nonlocking 3.5 mm screw and locking 3.5 mm screw were placed. The eccentric replaced K wire was removed. The wound was gently irrigated and final fluoroscopic images were taken. The remaining augment was injected around the fusion site and the capsule was closed with a running 2-0 Vicryl. The deep subcu was reapproximated using 3-0 Monocryl. The skin was closed with 3-0 nylon horizontal mattress stitches. I verified that all instrument, sponge, and sharp counts were correct. The patient was awoken from her anesthetic, transferred to a gurney, and brought to PACU without the procedure well. Plan: The patient is going to discharge home as an outpatient. She is to remain nonweightbearing on her right leg in a bulky Tai splint. She was given pain medication and a stool softener. She was given aspirin for DVT prophylaxis.
[2019-01-14] MEDS: HYDROmorphone 0.5 MG/0.5 ML SYRINGE IVP PRN ×2 (17:40→17:47)
[2019-01-14] MEDS ORDERED: HYDROmorphone 1 MG/ML 1 ML SYRINGE IVP PRN (17:54)
[2019-01-14] MEDS ORDERED: SODIUM CHLORIDE 0.9% 1,000 ML IV SCH (18:00)
[2019-01-14] MEDS ORDERED: METOCLOPRAMIDE 5 MG/ML 2 ML VIAL IVP ONE (18:07)
--- NOTE | 2019-01-14 19:02 | P.ANPRN ---
Procedure Note - Anesthesia - Nerve Block Performed Right Saphenous/Obturator Single Time Out Performed: Yes Date of Procedure: 01/14/19 Procedure Start Time: 17:15 Procedure Stop Time: 17:21 Location of Patient Procedure: PACU Indication: Acute Post-Operative Pain, Requested by Surgeon Specifically requested for management of pain by DrThanh: Delvin Sharif Sedation Type: Sedate with meaningful contact maintained Preparation: Sterile Prep Position: Supine Catheter: None Needle Types: Pajunk Needle Gauge: 20 Ultrasound used to visualize needle placement: Yes Ultrasound used to observe medication spread: Yes Injectate: Other (see comment) (0.25% ropivacaine/1% lidocaine 20 mL) Adjunct: Epinephrine (see comment for dilution ratio) (1:200,000) Blood Aspirated: No Pain Paresthesia on Injection Noted: No Resistance on Injection: Normal Image Stored and Saved: Yes Events: Uneventful and Well Tolerated
--- NOTE | 2019-01-14 19:04 | P.ANPRN ---
Procedure Note - Anesthesia - Nerve Block Performed Right Popliteal Single Time Out Performed: Yes Date of Procedure: 01/14/19 Procedure Start Time: 17:25 Procedure Stop Time: 17:32 Location of Patient Procedure: PACU Indication: Acute Post-Operative Pain, Requested by Surgeon Specifically requested for management of pain by DrThanh: Delvin Sharif Sedation Type: Sedate with meaningful contact maintained Preparation: Sterile Prep Position: Left Lateral Catheter: None Needle Types: Pajunk Needle Gauge: 21 Ultrasound used to visualize needle placement: Yes Ultrasound used to observe medication spread: Yes Injectate: Other (see comment) (Ropivacaine 0.25%/lidocaine 1% 20 mL) Adjunct: Epinephrine (see comment for dilution ratio) (1:200,000) Blood Aspirated: No Pain Paresthesia on Injection Noted: No Resistance on Injection: Normal Image Stored and Saved: Yes Events: Uneventful and Well Tolerated
[2019-01-15 07:58] VITALS: BP 93/52; PULSE 60; RESP 18; TEMP 98.3
[2019-01-15] MEDS ORDERED: HYDROcodone/APAP 10-325MG 1 EACH TAB PO PRN (08:07)
--- NOTE | 2019-01-15 08:17 | P.PN ---
Subjective Progress Note Date: 01/15/19 This patient is a 63 year old female who has had multiple surgeries on her right foot. She presented to [facility] 01/14/19 to undergo elective surgery on her right foot. Patient underwent a hardware removal, and revision fusion of the right first MTP joint on 01/14/[address] Sharif. She was going to discharge home following surgery as an outpatient, although patient was admitted following the procedure due to pain. Patient was examined bedside this morning. She is doing well. She states her pain is better controlled this morning, she recently received IV diluadid. She has been up with the walker, and remaining non weight bearing on the right foot. She is tolerated food well. She denies chest pain, shortness of breath, nausea, vomiting. She denies any new complaints today. Vital signs stable. Objective - Vital Signs Vital signs: Vital Signs Temp 98.3 F 01/15/19 07:00 Pulse 60 01/15/19 07:00 Resp 18 01/15/19 07:00 BP 93/52 01/15/19 07:00 Pulse Ox 95 01/15/19 07:00 Intake & Output 01/14/19 01/15/19 01/15/19 18:59 06:59 18:59 Intake Total 1150 Output Total 20 Balance 1130 Weight 79.7 kg Intake: IV 1150 Output: Estimated Blood Loss 20 Other: # Voids 3 - Exam On examination, the patient is lying in bed in no acute distress. The patient is alert and oriented 3. On inspection of the right lower extremity, there is a bulky Tai splint in place. The splint is clean, dry, and intact. The right toes are warm and well perfused, with capillary refill less than 2 seconds. The patient is able to wiggle her right toes without difficulty. Sensation is intact to light touch of the right lower extremity. Neurovascular is intact of the right lower extremity. The left calf is soft and nontender. - Labs Labs: Microbiology - Last 24 Hours (Table) 01/14/19 15:45 Gram Stain - Preliminary Foot - Right Wound Culture - Preliminary 01/14/19 15:45 Anaerobic Culture - Preliminary Foot - Right Assessment and Plan Assessment: Status-post hardware removal right foot, revision fusion of the right first MTP joint on 01/14/19. Post-operative day #1. Plan: - Strict nonweightbearing of the right lower extremity. Ice and elevate the right lower extremity to decrease pain and swelling. - Continue pain management. - Aspirin 325 mg for DVT prophylaxis. - We will plan to discharge the patient later today, if her pain is well- controlled on oral [place]. The patient will follow-up in the office with Dr. Sharif in two weeks following discharge. Patient discussed with Dr. Sharif.
--- NOTE | 2019-01-15 08:34 | FL ---
Fluoroscopy HISTORY: Hardware removal 19 seconds fluoroscopy time supplied to the referring clinician. 3 intraoperative C-arm images docum ent the procedure. See dictated report from orthopedic surgery.
--- NOTE | 2019-01-15 08:34 | XR ---
Right toes HISTORY: Hardware removal 3 intraoperative C-arm images document the procedure.
== END 2019-01-15 14:01 | disposition home or self-care (01) ==
LOC: OR 11:09 → 4SSUR 17:09 → OR 01-15 14:01
PROVIDERS: ATTEND Orthopaedic Surgery
DX: M96.0 Pseudarthrosis after fusion or arthrodesis (principal); T84.84XA Pain due to internal orthopedic prosthetic devices, implants and grafts, initial encounter; R63.5 Abnormal weight gain; Z68.30 Body mass index [BMI] 30.0-30.9, adult; Z97.3 Presence of spectacles and contact lenses; Z91.09 Other allergy status, other than to drugs and biological substances
CPT/HCPCS: 20680; 28750; 87070; 87205; 87075; 73660; C1713 ×2; J2250; J1100; J2765; J0690; J2405; J2001; J3010; J1170 ×3; J2704

== ENCOUNTER → 2019-02-03 | Outpatient (CLI) | payer MEDICAID ==
--- NOTE | 2019-02-05 10:26 | MM ---
Reason for exam: screening (asymptomatic). Last mammogram was performed 1 year ago. History: Patient is postmenopausal. Family history of breast cancer in maternal aunt at age 50. Benign excisional biopsy of the right breast, February 03, 2006. Reductions of both breasts, 1999. Took hormonal contraceptives for 5 years beginning at age 23. Physical Findings: A clinical breast exam by your physician is recommended on an annual basis and results should be correlated with mammographic findings. MG 3D Screening Mammo W/Cad Bilateral CC and MLO view(s) were taken. Prior study comparison: February 02, 2018, bilateral MG 3d screening mammo w/cad. January 31, 2017, bilateral MG 3d screening mammo w/cad. The breast tissue is heterogeneously dense. This may lower the sensitivity of mammography. Round asymmetric density subareolar left breast on CC appears more defined. Further evaluation recommended. ASSESSMENT: Incomplete: need additional imaging evaluation, BI-RAD 0 RECOMMENDATION: Special view mammogram of the left breast. (3D) If lesion persists on supplemental views, image directed ultrasound is recommended. [facility] will attempt to contact patient to return for supplemental views and ultrasound if indicated.
== END | disposition home or self-care (01) ==
LOC: RADMAMWWP 11:09
PROVIDERS: ATTEND Obstetrics & Gynecology
DX: Z12.31 Encounter for screening mammogram for malignant neoplasm of breast (principal)
CPT/HCPCS: 77063; 77067

== ENCOUNTER → 2019-02-10 | Outpatient (CLI) | payer MEDICAID ==
--- NOTE | 2019-02-10 09:55 | MM ---
Reason for exam: additional evaluation requested from abnormal screening. Last mammogram was performed less than 1 month ago. History: Patient is postmenopausal. Family history of breast cancer in maternal aunt at age 50. Benign excisional biopsy of the right breast, February 03, 2006. Reductions of both breasts, 1999. Took hormonal contraceptives for 5 years beginning at age 23. Physical Findings: Nurse did not find any significant physical abnormalities on exam. MG 3D Work Up W/Cad LT CC and MLO view(s) were taken of the left breast. Prior study comparison: February 03, 2019, bilateral MG 3d screening mammo w/cad. February 02, 2018, bilateral MG 3d screening mammo w/cad. The breast tissue is heterogeneously dense. This may lower the sensitivity of mammography. Benign appearing calcifications in the left breast. The previously seen abnormality resolves on additional views and appears as fibroglandular tissue compatible with summation. No suspicious abnormality. These results were verbally communicated with the patient and result sheet given to the patient on 02/10/19. ASSESSMENT: Benign, BI-RAD 2 RECOMMENDATION: Return to routine screening mammogram schedule for both breasts.
== END | disposition home or self-care (01) ==
LOC: RADMAMWWP 08:57
PROVIDERS: ATTEND Obstetrics & Gynecology
DX: R92.8 Other abnormal and inconclusive findings on diagnostic imaging of breast (principal)
CPT/HCPCS: 77061; 77065

== ENCOUNTER → 2019-02-25 | Outpatient (CLI) | payer MEDICAID ==
--- NOTE | 2019-02-26 12:00 | ECHOF ---
Referral Reason:R94.31 Abnormal electrocardiogram [ECG] [EKG] MEASUREMENTS -------- HEIGHT: 162.6 cm WEIGHT: 77.1 kg BP: RVIDd: 3.8 cm (< 3.3) IVSd: 1.0 cm (0.6 - 1.1) LVIDd: 4.0 cm (3.9 - 5.3) LVPWd: 1.0 cm (0.6 - 1.1) IVSs: 1.4 cm LVIDs: 3.0 cm LVPWs: 0.9 cm LA Diam: 3.1 cm (2.7 - 3.8) LAESV Index (A-L): 23.56 ml/m Ao Diam: 2.4 cm (2.0 - 3.7) AV Cusp: 1.9 cm (1.5 - 2.6) LA Diam: 3.3 cm (2.7 - 3.8) MV EXCURSION: 18.221 mm (> 18.000) MV EF SLOPE: 104 mm/s (70 - 150) EPSS: 0.2 cm MV E David: 0.79 m/s MV DecT: 205 ms MV A David: 0.88 m/s MV E/A Ratio: 0.89 RAP: 5.00 mmHg RVSP: 21.84 mmHg TAPSE: 21.87 mm FINDINGS -------- Sinus rhythm. This was a technically good study. The left ventricular size is normal. There is mild concentric left ventricular hypertrophy. Overa ll left ventricular systolic function is normal with, an EF between 55 - 60 %. The right ventricle is normal in size. The left atrial size is normal. Normal LA size by volume 22+/-6 ml/m2. The right atrial size is normal. The aortic valve is trileaflet, and appears structurally normal. No aortic stenosis or regurgitation. Mild mitral annular calcification present. Mild mitral regurgitation is present. Right ventricular systolic pressure is normal at < 35 mmHg. There is no evidence of pulmonary hyper tension. The aortic root size is normal. Echo free space represents a pericardial fat pad. CONCLUSIONS -------- 1. Sinus rhythm. 2. This was a technically good study. 3. The left ventricular size is normal. 4. There is mild concentric left ventricular hypertrophy. 5. Overall left ventricular systolic function is normal with, an EF between 55 - 60 %. 6. The right ventricle is normal in size. 7. The left atrial size is normal. 8. Normal LA size by volume 22+/-6 ml/m2. 9. The right atrial size is normal. 10. The aortic valve is trileaflet, and appears structurally normal. No aortic stenosis or regurgitat ion. 11. Mild mitral annular calcification present. 12. Mild mitral regurgitation is present. 13. Right ventricular systolic pressure is normal at < 35 mmHg. 14. There is no evidence of pulmonary hypertension. 15. The aortic root size is normal. 16. Echo free space represents a pericardial fat pad. PROMOTIONS SPECIALIST: Анна Batista RDCS
== END | disposition home or self-care (01) ==
LOC: RADECHMAIN 15:04
PROVIDERS: ATTEND Internal Medicine Cardiovascular Disease
DX: I34.0 Nonrheumatic mitral (valve) insufficiency (principal); I51.7 Cardiomegaly
CPT/HCPCS: 93306

== ENCOUNTER → 2019-03-22 | Outpatient (CLI) | payer MEDICAID ==
[~2019-03-22] MED LIST changes: -DEXAMETHASONE SOD PHOSPHATE 10 MG/ML 1 ML VIAL IV ONE; +DOBUTamine DRIP for NUC MED 500 MG in DEXTROSE/WATER 1 250ML.BAG IV ONE; -HYDROmorphone 0.5 MG/0.5 ML SYRINGE IVP PRN; -LACTATED RINGERS 1,000 ML IV SCH; -LIDOCAINE 1% 20 ML VIAL (10MG/ML) FOR IV START INTRADERMA PRN; -SCOPOLAMINE 1.5MG/72HR PATCH TRANSDERM ONE; -ceFAZolin IN SWFI 2 GM/20 ML SYRINGE IVP ONE
--- NOTE | 2019-03-22 20:44 | EST ---
EXERCISE STRESS DATE OF SERVICE: 03/22/2019. INDICATION: Chest pain. REFERRING PHYSICIAN: Dr. Xiao AGE: 63 SEX: Fe HT: 64 inches WT: 170 pounds PROTOCOL: Dobutamine Stress Echo STAGE: III DURATION OF EXERCISE: HEART RATE REST: 62 BLOOD PRESSURE REST: 135/73 MAXIMUM HEART RATE ACHIEVED: 137 MAXIMUM BLOOD PRESSURE: 171/40 85% MPHR: 134 100% MPHR: 158 METS: CLINICAL INFORMATION: Chest pain, abnormal EKG. STRESS DATA: Heart rate 62, pressure is 135/73 mm Hg. Baseline EKG showed sinus mechanism. Dobutamine infusion at a dose of 10 mics per kg per minute was initiated and increased to 30 mics per kg per minute per protocol. Max heart rate was 137 which is about 87% of maximum predicted heart rate. Maximum blood pressure was 171/40 mmHg. Clinically, the patient did not have any symptoms of chest pain or chest discomfort during the testing or on recovery. The EKG did not show any significant ST or T-wave abnormalities concerning for ischemia. ECHOCARDIOGRAM IMAGES: On echocardiogram images from parasternal long axis view, parasternal short axis view apical 4 chamber and apical 2 chamber view were obtained as the baseline images, at low dose dobutamine infusion, at peak heart rate as well as on recovery. The echocardiogram images did not show any evidence of wall motion abnormalities concerning for ischemia or concerning for severe underlying coronary artery disease. CONCLUSION: 1. Normal EKG in response to dobutamine. 2. Normal echocardiogram in response to dobutamine. 3. Essentially normal dobutamine stress echocardiogram for the patient. MMODL / IJN: [id number] /
== END | disposition home or self-care (01) ==
LOC: RADNMMAIN 09:59
PROVIDERS: ATTEND Internal Medicine Cardiovascular Disease
DX: R07.9 Chest pain, unspecified (principal)
CPT/HCPCS: 93351; J1250